=== PATIENT | female | born 1955 | race American Indian/Alaskan Native ===

== ENCOUNTER 2021-08-27 19:26 | Inpatient (IN) | payer OTHER, MEDICARE ==
--- NOTE | 2021-08-27 19:53 | Consultation ---
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 Prior stroke 2.5 weeks ago, unclear currently if she received thrombolysis at that time. Last Known Normal: I have collected independent history specific to time last normal or last known well. We have collaborated with the provider and at this time, we have the most current timeline with the information that is available. 6:30pm Duration: constant minutes hours Possible Thrombolytic candidate: not on warfarin or NOACs no intracranial hemorrhage history no recent major surgery Prior stroke 2.5 weeks ago Quality: weakness # Scores Time of exam and NIHSS ( Time): 08/27/2021, 19:36 Level of Consciousness 1a: [0] = Alert; keenly responsive LOC Questions 1b: [0] = Answers both questions correctly LOC Commands 1c: [0] = Performs both tasks correctly Best Gaze 2: [0] = Normal Visual 3: [0] = No visual loss Facial Palsy 4: [1] = Minor paralysis Motor Arm Left 5a: [1] = Drift Motor Arm Right 5b: [0] = No drift Motor Leg Left 6a: [1] = Drift Motor Leg Right 6b: [0] = No drift Limb Ataxia 7: [0] = Absent Sensory 8: [0] = Normal Best Language 9: [0] = No aphasia Dysarthria 10: [0] = Normal Extinction and Inattention 11: [0] = No abnormality NIHSS Total: 3 Modified [place] Scale (mRS) pre-stroke: [0] = No Symptoms Modified [place] Scale total: 0 VAN Screening: Negative # Exam SBP: 176 DBP: 92 Mental Status: awake alert and oriented x 3 follows commands Language: normal speech Cranial Nerves: left facial droop Mild nasolabial fold asymmetry # ROS Pulmonary: no shortness of breath Cardiovascular: no chest pain # PMH-FH-SH Past Medical History: Diabetes hypertension stroke Social History: non-smoker Medications: antihypertensive diabetic medication Allergies: NKDA # Data Glucose: [address] personally read by me (Eastern Time): 08/27/2021, 19:[address]: no bleed preliminarily reviewed by me, please refer to radiology read for official reading subacute ischemic stroke # Assessment Impression: Ischemic Stroke (Acute) Weakness Acute stroke versus recrudescence # Plan Thrombolytic/Intervention: Possible IA candidate Thrombolytic Exclusion (< 3 hour window): stroke within 3 months Possible IA Candidate: CTA pending Suspect small-vessel disease, though, given current clinical symptoms, as well as CT head Target Blood Pressure: SBP < 220 Labs: B12 CBC comprehensive metabolic panel ESR hemoglobin A1c lipid panel thiamine troponin TSH urine drug screen ua Imaging: (urgency: STAT): CT Angiogram Head and CT Angiogram Neck AND call back with results if abnormal Imaging: (urgency: routine): MRI Brain without contrast Diagnostic Test: echo without bubble study Therapy/Evaluation: NPO until swallow evaluation PT/OT evaluation Medication: aspirin 81 mg PLUS clopidogrel (Plavix) 75 mg for 21 days, then monotherapy therafter start statin with goal of LDL < 70 DVT Prophylaxis: SCD chemical DVT prophylaxis Other: LDL < 70 permissive hypertension telemetry monitoring I have discussed my recommendations with the referring provider Disposition: admit Medications and Allergies Allergies Allergy/AdvReac Type Severity Reaction Status Date / Time No Known Allergies Allergy Verified 08/02/21 21:46 Home Medications Medication Instructions Recorded Confirmed Last Taken Type Aspirin 325 mg PO ONCE 08/07/21 08/07/21 07/31/21 History Loperamide [Imodium] 2 mg PO BID 08/07/21 08/07/21 08/01/21 History Acetaminophen [Acetaminophen TAB] 650 mg PO Q4H PRN tablet 08/08/21 Unknown Rx AtorvaSTATin [Lipitor] 40 mg PO QHS tablet 08/08/21 Unknown Rx Famotidine [Pepcid] 20 mg PO BID tablet 08/08/21 Unknown Rx Losartan [Cozaar] 50 mg PO QDAY tablet 08/08/21 Unknown Rx NIFEdipine XL [Procardia Xl] 60 mg PO QDAY tablet 08/08/21 Unknown Rx metFORMIN [Glucophage] 500 mg PO BIDDIAB tablet 08/08/21 Unknown Rx Results - Laboratory Findings Abnormal Lab Findings: Abnormal Labs 08/27/21 19:29 POC Glucose 107 H
--- NOTE | 2021-08-27 20:12 | Emergency Department Report ---
ED Neuro Deficit HPI - General Stated Complaint: POSSIBLE STROKE Time Seen by Provider: 08/27/21 19:36 - History of Present Illness Initial Comments: 66-year-old female with a history of recent stroke brought in by EMS with left- sided weakness that started about an hour before presentation. No speech or visual disturbance reported. All was well before the symptoms started an hour ago. No fever or chills reported. Patient denies any headache or recent trauma. No other modifying or associated factors reported. - Related Data Home Medications: Home Medications Medication Instructions Recorded Confirmed Last Taken Aspirin 325 mg PO ONCE 08/07/21 08/07/21 07/31/21 Loperamide [Imodium] 2 mg PO BID 08/07/21 08/07/21 08/01/21 Previous Rx's Medication Instructions Recorded Last Taken Type Acetaminophen [Acetaminophen TAB] 650 mg PO Q4H PRN tablet 08/08/21 Unknown Rx AtorvaSTATin [Lipitor] 40 mg PO QHS tablet 08/08/21 Unknown Rx Famotidine [Pepcid] 20 mg PO BID tablet 08/08/21 Unknown Rx Losartan [Cozaar] 50 mg PO QDAY tablet 08/08/21 Unknown Rx NIFEdipine XL [Procardia Xl] 60 mg PO QDAY tablet 08/08/21 Unknown Rx metFORMIN [Glucophage] 500 mg PO BIDDIAB tablet 08/08/21 Unknown Rx Allergies/Adverse Reactions: Allergies Allergy/AdvReac Type Severity Reaction Status Date / Time No Known Allergies Allergy Verified 08/02/21 21:46 ED Review of Systems ROS: Stated complaint: POSSIBLE STROKE Other details as noted in HPI Comment: All other systems reviewed and negative Neurological: weakness ED Past Medical Hx - Past Medical History Hx Hypertension: Yes - Social History Smoking Status: Current Every Day Smoker - Medications Home Medications: Home Medications Medication Instructions Recorded Confirmed Last Taken Type Aspirin 325 mg PO ONCE 08/07/21 08/07/21 07/31/21 History Loperamide [Imodium] 2 mg PO BID 08/07/21 08/07/21 08/01/21 History Acetaminophen [Acetaminophen TAB] 650 mg PO Q4H PRN tablet 08/08/21 Unknown Rx AtorvaSTATin [Lipitor] 40 mg PO QHS tablet 08/08/21 Unknown Rx Famotidine [Pepcid] 20 mg PO BID tablet 08/08/21 Unknown Rx Losartan [Cozaar] 50 mg PO QDAY tablet 08/08/21 Unknown Rx NIFEdipine XL [Procardia Xl] 60 mg PO QDAY tablet 08/08/21 Unknown Rx metFORMIN [Glucophage] 500 mg PO BIDDIAB tablet 08/08/21 Unknown Rx ED Neuro Physical Exam - General Limitations: No Limitations General appearance: alert, in no apparent distress Suspected Stroke: Yes - Head Head exam: Present: atraumatic, normal inspection - Eye Eye exam: Present: normal appearance, PERRL, EOMI Pupils: Present: normal accommodation - ENT ENT exam: Present: normal exam, normal orophraynx, mucous membranes moist - Neck Neck exam: Present: normal inspection, full ROM. Absent: tenderness, meningismus - Respiratory Respiratory exam: Present: normal lung sounds bilaterally. Absent: respiratory distress, accessory muscle use - Cardiovascular Cardiovascular Exam: Present: regular rate, normal rhythm, normal heart sounds - GI/Abdominal GI/Abdominal exam: Present: soft, normal bowel sounds. Absent: distended, tenderness - Extremities Exam Extremities exam: Present: normal inspection, normal capillary refill. Absent: full ROM, tenderness, pedal edema, joint swelling - Neurological Exam Neurological exam: Present: alert - NIHSS Assessment Interval: Baseline 1a. Level of Consciousness: alert/keenly responsive 1b. LOC Questions: answers both correctly 1c. LOC Commands: performs tasks correctly 2. Best Gaze: normal 3. Visual: no visual loss 4. Facial Palsy: normal symmetrical movement 5b. Motor Arm Right: no drift 5a. Motor Arm Left: drift 6a. Motor Leg Left: drift 6b. Motor Leg Right: no drift 7. Limb Ataxia: absent 8. Sensory: normal 9. Best Language: no aphasia 10. Dysarthria: normal 11. Extinction/Inattention: no abnormality Total Score: 2 Stroke Severity: Minor Stroke - Psychiatric Psychiatric exam: Present: normal affect, normal mood - Skin Skin exam: Present: warm, normal color ED Course Vital Signs 08/27/21 08/27/21 20:38 20:55 Temperature 97.8 F Pulse Rate 98 H 95 H Respiratory 18 Rate Blood Pressure 155/82 [Left] O2 Sat by Pulse 100 Oximetry - Reevaluation(s) Reevaluation #1: 08/27/21 20:14 here with EMS with possible left sided weakness and noted with minor drift on both upper and lower treatment use--NIHScore 2 -- Dr Lombardo consulted the neurologist front desk specialist -- who did not recommend tPA at this time and wanted patient admitted for echocardiogram and MRI of the brain in the morning. He also recommended giving aspirin and Plavix for the next 21 days and switch to monotherapy afterward. 08/27/21 21:51 Dr Ivory consulted who accept pt for further neuro workup - Lab Data Result diagrams: 08/27/21 20:08 08/27/21 20:08 Lab Results 08/27/21 08/27/21 08/27/21 Range/Units 19:29 20:08 20:08 WBC 8.9 (4.5-11.0) K/mm3 RBC 4.52 (3.65-5.03) M/mm3 Hgb 10.9 (10.1-14.3) gm/dl Hct 33.9 (30.3-42.9) % MCV 75 L (79-97) fl MCH 24 L (28-32) pg MCHC 32 (30-34) % RDW 17.8 H (13.2-15.2) % Plt Count 242 (140-440) K/mm3 Lymph % (Auto) 22.6 (13.4-35.0) % [place] % (Auto) 8.4 H (0.0-7.3) % Eos % (Auto) 2.0 (0.0-4.3) % Baso % (Auto) 0.6 (0.0-1.8) % Lymph # (Auto) 2.0 (1.2-5.4) K/mm3 [place] # (Auto) 0.7 (0.0-0.8) K/mm3 Eos # (Auto) 0.2 (0.0-0.4) K/mm3 Baso # (Auto) 0.0 (0.0-0.1) K/mm3 Seg Neutrophils % 66.4 (40.0-70.0) % Seg Neutrophils # 5.9 (1.8-7.7) K/mm3 PT 12.2 (12.2-14.9) Sec. INR 0.82 L (0.87-1.13) APTT 27.7 (24.2-36.6) Sec. Sodium (137-145) mmol/L Potassium (3.6-5.0) mmol/L Chloride (98-107) mmol/L Carbon Dioxide (22-30) mmol/L Anion Gap mmol/L BUN (7-17) mg/dL Creatinine (0.6-1.2) mg/dL Estimated GFR ml/min BUN/Creatinine Ratio % Glucose (65-100) mg/dL POC Glucose 107 H (70-105) mg/dL Calcium (8.4-10.2) mg/dL Total Bilirubin (0.1-1.2) mg/dL AST (5-40) units/L ALT (7-56) units/L Alkaline Phosphatase (35-129) units/L Troponin T (0.00-0.029) ng/mL NT-Pro-B Natriuret Pep (0-900) pg/mL Total Protein (6.3-8.2) g/dL Albumin (3.9-5) g/dL Albumin/Globulin Ratio % TSH (0.270-4.200) mlU/mL 08/27/21 08/27/21 Range/Units 20:08 20:08 WBC (4.5-11.0) K/mm3 RBC (3.65-5.03) M/mm3 Hgb (10.1-14.3) gm/dl Hct (30.3-42.9) % MCV (79-97) fl MCH (28-32) pg MCHC (30-34) % RDW (13.2-15.2) % Plt Count (140-440) K/mm3 Lymph % (Auto) (13.4-35.0) % [place] % (Auto) (0.0-7.3) % Eos % (Auto) (0.0-4.3) % Baso % (Auto) (0.0-1.8) % Lymph # (Auto) (1.2-5.4) K/mm3 [place] # (Auto) (0.0-0.8) K/mm3 Eos # (Auto) (0.0-0.4) K/mm3 Baso # (Auto) (0.0-0.1) K/mm3 Seg Neutrophils % (40.0-70.0) % Seg Neutrophils # (1.8-7.7) K/mm3 PT (12.2-14.9) Sec. INR (0.87-1.13) APTT (24.2-36.6) Sec. Sodium 136 L (137-145) mmol/L Potassium 4.7 (3.6-5.0) mmol/L Chloride 102.6 (98-107) mmol/L Carbon Dioxide 21 L (22-30) mmol/L Anion Gap 17 mmol/L BUN 18 H (7-17) mg/dL Creatinine 1.0 (0.6-1.2) mg/dL Estimated GFR > 60 ml/min BUN/Creatinine Ratio 18 % Glucose 100 (65-100) mg/dL POC Glucose (70-105) mg/dL Calcium 9.0 (8.4-10.2) mg/dL Total Bilirubin 0.30 (0.1-1.2) mg/dL AST 15 (5-40) units/L ALT 11 (7-56) units/L Alkaline Phosphatase 85 (35-129) units/L Troponin T < 0.010 (0.00-0.029) ng/mL NT-Pro-B Natriuret Pep 179.9 (0-900) pg/mL Total Protein 6.7 (6.3-8.2) g/dL Albumin 3.8 L (3.9-5) g/dL Albumin/Globulin Ratio 1.3 % TSH 2.160 (0.270-4.200) mlU/mL Critical Care Time: Yes (60) Critical care time in (mins) excluding proc time.: 60 Critical care attestation.: If time is entered above; I have spent that time in minutes in the direct care of this critically ill patient, excluding procedure time. Pt represent with possible stroke and due to high probability of clinically significant, life threatening deterioration, this patient required my highest level of preparedness to intervene emergently and I personally spent this critical care time directly and personally managing this patient. This critical care time included obtaining a history; examining this patient; pulse oximetry ; ordering and review of studies ; arranging urgent treatment with development of a management plan ; evaluation of patient's response to treatment ; frequent reassessment ; and, discussion with other providers. This critical care time was performed to assess and manage the high probability of imminent, life- threatening deterioration that could result in multiple organ damage if not done in a timely fashion. ED Disposition Clinical Impression: Stroke-like symptoms CVA (cerebral vascular accident) Qualifiers: CVA mechanism: unspecified Qualified Code(s): I63.9 - Cerebral infarction, unspecified Disposition: 09 ADMITTED INPATIENT Is pt being admited?: Yes Does the pt Need Aspirin: No Condition: Stable
--- NOTE | 2021-08-27 20:14 | Cat Scan Report ---
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 TECHNIQUE: Routine CT head. All CT scans at this location are performed using CT dose reduction for A BLANCA by means of automated exposure control. COMPARISON: 08/06/2021 MRI brain. FINDINGS: Intracranial: Yang-white matter differentiation is maintained. No intracranial hemorrhage. No extra a xial collection. No hydrocephalus. No herniation. Periventricular and centrum semiovale white matter hypoattenuation most consistent with sequela of chronic microvascular disease, similar prior MRI. Rem ote lacunar infarctions the right posterior limb of internal capsule in the right centrum semiovale. Sinuses: Paranasal sinuses and mastoid air cells are essentially clear. Orbits: Globes are intact. Calvarium: No acute fracture. IMPRESSION: 1. No acute intracranial abnormality. Signer Name: Jer De La Rosa MD Signed: 08/27/2021 8:10 PM Workstation Name: [id number]
--- NOTE | 2021-08-27 20:23 | Cat Scan Report ---
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 TECHNIQUE: CT of the head. CTA of the neck and head is performed after IV contrast. 3-D/MIP reformats were postprocessed. Percentage stenosis is determined by direct quantitative measurements of diseas ed internal carotid artery diameter compared with normal distal internal carotid artery reference seg ments or by criteria similar to NASCET where applicable. All CT scans at this location are performed using CT dose reduction for ALARA by means of automated exposure control. FINDINGS: CT HEAD: Please see CT head from earlier same day CTA NECK: Aortic arch: No significant abnormality. Cervical vertebral arteries: No occlusion or hemodynamically significant stenosis. Common Carotid arteries: No occlusion or hemodynamically significant stenosis. Internal carotid arteries: No occlusion or hemodynamically significant stenosis. CTA HEAD: Intracranial vertebral arteries: No occlusion or significant stenosis. Basilar artery: No occlusion or significant stenosis. Posterior cerebral arteries: No occlusion or significant stenosis. Intracranial internal carotid arteries: No occlusion or significant stenosis. Anterior cerebral arteries: Hypoplastic right A1 segment, common anatomic variant. No occlusion or si gnificant stenosis. Middle cerebral arteries: No occlusion or significant stenosis. No aneurysm. Additional findings: None. IMPRESSION: 1. CTA NECK: No occlusion or significant stenosis of the carotid or vertebral arteries. 2. CTA HEAD: No occlusion or significant stenosis of the major intracranial vasculature. Signer Name: Jer De La Rosa MD Signed: 08/27/2021 8:19 PM Workstation Name: [id number]
[2021-08-27 20:25] LABS: Basophils % (Auto) 0.6 % (0.0-1.8); Eosinophils # (Auto) 0.2 K/mm3 (0.0-0.4); Hematocrit 33.9 % (30.3-42.9); Hemoglobin 10.9 gm/dl (10.1-14.3); Lymphocytes % (Auto) 22.6 % (13.4-35.0); Mean Corpuscular HGB Conc 32 % (30-34); Mean Corpuscular Volume 75 fl (79-97); Monocytes # (Auto) 0.7 K/mm3 (0.0-0.8); Monocytes % (Auto) 8.4 % (0.0-7.3); Platelet Count 242 K/mm3 (140-440); Red Blood Count 4.52 M/mm3 (3.65-5.03); Red Cell Distribution Width 17.8 % (13.2-15.2)
[2021-08-27 20:38] LABS: INR 0.82 (0.87-1.13)
[2021-08-27 20:39] LABS: Partial Thromboplastin Time 27.7 Sec. (24.2-36.6)
[2021-08-27 20:44] LABS: Alanine Aminotransferase 11 units/L (7-56); Albumin 3.8 g/dL (3.9-5); BUN/Creatinine Ratio 18; Blood Urea Nitrogen 18 mg/dL (7-17); Hemolysis Index 35
[2021-08-27] MEDS ORDERED: MORPHINE 4 MG/1 ML INJ IV PRN (22:29)
[2021-08-27] MEDS ORDERED: ONDANSETRON 4 MG/2 ML INJ IV PRN (22:29)
[2021-08-27] MEDS ORDERED: ALBUTEROL 2.5 MG/3 ML NEBU IH PRN (22:29)
--- NOTE | 2021-08-27 22:38 | History and Physical Report ---
History of Present Illness Date of examination: 08/27/21 Date of admission: 08/27/21 Chief complaint: Left left-sided weakness History of present illness: 66-year-old female with past medical history of hypertension, obesity and recently stroke was brought to the emergency room because of left-sided weakness that started about an hour before presentation. No speech or visual disturbance reported. All was well before the symptoms started an hour ago. No fever or chills reported. Patient denies any headache or recent trauma. No other modifying or associated factors reported. Initial CT scan shows no acute intracranial abnormality. Subsequently patient was seen and evaluated by telemetry neurology.'s were going to admit the patient we will put the patient on CVA pathway as per telemetry neuro recommendation Past History Past Medical History: hypertension, stroke (Obesity), other Past Surgical History: No surgical history Social history: smoking Family history: hypertension Medications and Allergies Allergies Allergy/AdvReac Type Severity Reaction Status Date / Time No Known Allergies Allergy Verified 08/02/21 21:46 Home Medications Medication Instructions Recorded Confirmed Last Taken Type Aspirin 325 mg PO ONCE 08/07/21 08/07/21 07/31/21 History Loperamide [Imodium] 2 mg PO BID 08/07/21 08/07/21 08/01/21 History Acetaminophen [Acetaminophen TAB] 650 mg PO Q4H PRN tablet 08/08/21 Unknown Rx AtorvaSTATin [Lipitor] 40 mg PO QHS tablet 08/08/21 Unknown Rx Famotidine [Pepcid] 20 mg PO BID tablet 08/08/21 Unknown Rx Losartan [Cozaar] 50 mg PO QDAY tablet 08/08/21 Unknown Rx NIFEdipine XL [Procardia Xl] 60 mg PO QDAY tablet 08/08/21 Unknown Rx metFORMIN [Glucophage] 500 mg PO BIDDIAB tablet 08/08/21 Unknown Rx Review of Systems All systems: negative Constitutional: weakness, 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) HEART Score - HEART Score Troponin: Troponin T < 0.010 ng/mL (0.00-0.029) 08/27/21 20:08 Results - Labs CBC & Chem 7: 08/27/21 20:08 08/27/21 20:08 Labs: Laboratory Last Values WBC 8.9 K/mm3 (4.5-11.0) 08/27/21 20:08 RBC 4.52 M/mm3 (3.65-5.03) 08/27/21 20:08 Hgb 10.9 gm/dl (10.1-14.3) 08/27/21 20:08 Hct 33.9 % (30.3-42.9) 08/27/21 20:08 MCV 75 fl (79-97) L 08/27/21 20:08 MCH 24 pg (28-32) L 08/27/21 20:08 MCHC 32 % (30-34) 08/27/21 20:08 RDW 17.8 % (13.2-15.2) H 08/27/21 20:08 Plt Count 242 K/mm3 (140-440) 08/27/21 20:08 Lymph % (Auto) 22.6 % (13.4-35.0) 08/27/21 20:08 [place] % (Auto) 8.4 % (0.0-7.3) H 08/27/21 20:08 Eos % (Auto) 2.0 % (0.0-4.3) 08/27/21 20:08 Baso % (Auto) 0.6 % (0.0-1.8) 08/27/21 20:08 Lymph # (Auto) 2.0 K/mm3 (1.2-5.4) 08/27/21 20:08 [place] # (Auto) 0.7 K/mm3 (0.0-0.8) 08/27/21 20:08 Eos # (Auto) 0.2 K/mm3 (0.0-0.4) 08/27/21 20:08 Baso # (Auto) 0.0 K/mm3 (0.0-0.1) 08/27/21 20:08 Seg Neutrophils % 66.4 % (40.0-70.0) 08/27/21 20:08 Seg Neutrophils # 5.9 K/mm3 (1.8-7.7) 08/27/21 20:08 PT 12.2 Sec. (12.2-14.9) 08/27/21 20:08 INR 0.82 (0.87-1.13) L 08/27/21 20:08 APTT 27.7 Sec. (24.2-36.6) 08/27/21 20:08 Sodium 136 mmol/L (137-145) L 08/27/21 20:08 Potassium 4.7 mmol/L (3.6-5.0) 08/27/21 20:08 Chloride 102.6 mmol/L (98-107) 08/27/21 20:08 Carbon Dioxide 21 mmol/L (22-30) L 08/27/21 20:08 Anion Gap 17 mmol/L 08/27/21 20:08 BUN 18 mg/dL (7-17) H 08/27/21 20:08 Creatinine 1.0 mg/dL (0.6-1.2) 08/27/21 20:08 Estimated GFR > 60 ml/min 08/27/21 20:08 BUN/Creatinine Ratio 18 % 08/27/21 20:08 Glucose 100 mg/dL (65-100) 08/27/21 20:08 POC Glucose 107 mg/dL (70-105) H 08/27/21 19:29 Calcium 9.0 mg/dL (8.4-10.2) 08/27/21 20:08 Total Bilirubin 0.30 mg/dL (0.1-1.2) 08/27/21 20:08 AST 15 units/L (5-40) 08/27/21 20:08 ALT 11 units/L (7-56) 08/27/21 20:08 Alkaline Phosphatase 85 units/L (35-129) 08/27/21 20:08 Troponin T < 0.010 ng/mL (0.00-0.029) 08/27/21 20:08 NT-Pro-B Natriuret Pep 179.9 pg/mL (0-900) 08/27/21 20:08 Total Protein 6.7 g/dL (6.3-8.2) 08/27/21 20:08 Albumin 3.8 g/dL (3.9-5) L 08/27/21 20:08 Albumin/Globulin Ratio 1.3 % 08/27/21 20:08 TSH 2.160 mlU/mL (0.270-4.200) 08/27/21 20:08 - Imaging and Cardiology CT Scan - head: report reviewed Assessment and Plan VTE prophylaxis?: Chemical Plan of care discussed with patient/family: Yes - Patient Problems (1) CVA (cerebral vascular accident) Current Visit: Yes Status: Acute Qualifiers: CVA mechanism: unspecified Qualified Code(s): I63.9 - Cerebral infarction, unspecified Plan to address problem: Admit the patient to the medical telemetry. Aspirin 325 mg p.o. daily. Lipitor 40 mg p.o. daily. PT OT speech evaluation. MRI of the brain and MRA of the brain and neck with and without contrast. Neurology evaluation (2) HTN (hypertension) Current Visit: No Status: Acute Plan to address problem: Labetalol 10 mg IV every 6 hours as needed. We continue the home medication. (3) Obesity Current Visit: No Status: Acute Plan to address problem: Counseled the patient regarding weight reduction. We will call outpatient fo llow-up with bariatric surgery (4) DVT prophylaxis Current Visit: No Status: Acute Plan to address problem: Heparin 5000 units subcu every 12 hours for DVT prophylaxis. Pepcid 20 mg IV every 12 hours for GI prophylaxis. Patient is a full code
[2021-08-27] MEDS ORDERED: ASPIRIN 325 MG TAB PO ONE (23:30)
[2021-08-28] MEDS: SODIUM CHLORIDE 0.9% 1000 ML 1,000 ML IV SCH ×2 (01:47→14:27)
[2021-08-28] MEDS: IPRATROPIUM/ALBUTEROL SULFATE 3 ML AMPUL.NEB IH SCH ×3 (02:32→14:05)
[2021-08-28 05:10] LABS: Basophils # (Auto) 0.1 K/mm3 (0.0-0.1); Basophils % (Auto) 0.9 % (0.0-1.8); Eosinophils # (Auto) 0.2 K/mm3 (0.0-0.4); Eosinophils % (Auto) 2.3 % (0.0-4.3); Hematocrit 34.2 % (30.3-42.9); Hemoglobin 10.7 gm/dl (10.1-14.3); Lymphocytes # (Auto) 2.3 K/mm3 (1.2-5.4); Lymphocytes % (Auto) 28.4 % (13.4-35.0); Mean Corpuscular HGB Conc 31 % (30-34); Mean Corpuscular Volume 75 fl (79-97); Monocytes # (Auto) 0.6 K/mm3 (0.0-0.8); Platelet Count 230 K/mm3 (140-440); Red Blood Count 4.54 M/mm3 (3.65-5.03); Red Cell Distribution Width 17.8 % (13.2-15.2)
[2021-08-28 05:33] LABS: BUN/Creatinine Ratio 20; Blood Urea Nitrogen 16 mg/dL (7-17); Chol/HDL Ratio 2.47 %; HDL Cholesterol 46 mg/dL (40-59); Hemolysis Index 5; LDL Cholesterol,Direct 48 mg/dL (50-130)
[2021-08-28] MEDS ORDERED: NIFEdipine XL 60 MG TAB PO SCH (08:00)
--- NOTE | 2021-08-28 08:32 | Consultation ---
History of Present Illness Consult date: 08/28/21 Reason for Consult: CVA Chief complaint: Left arm weakness History of present illness: 66 yo female with htn, ischemic stroke 2 weeks ago w/ left-sided deficits who presents with worsening left arm weakness. Notes continued left arm weaknes this morning. Notes compliance with her medications. Noted with elevated bp in the ED. Telestroke team evaluated the patient in the ED. Past History Past Medical History: hypertension, stroke (Obesity), other Past Surgical History: No surgical history Social history: smoking Family history: hypertension Medications and Allergies Allergies Allergy/AdvReac Type Severity Reaction Status Date / Time No Known Allergies Allergy Verified 08/02/21 21:46 Home Medications Medication Instructions Recorded Confirmed Last Taken Type Aspirin 325 mg PO ONCE 08/07/21 08/07/21 07/31/21 History Loperamide [Imodium] 2 mg PO BID 08/07/21 08/07/21 08/01/21 History Acetaminophen [Acetaminophen TAB] 650 mg PO Q4H PRN tablet 08/08/21 Unknown Rx AtorvaSTATin [Lipitor] 40 mg PO QHS tablet 08/08/21 Unknown Rx Famotidine [Pepcid] 20 mg PO BID tablet 08/08/21 Unknown Rx Losartan [Cozaar] 50 mg PO QDAY tablet 08/08/21 Unknown Rx NIFEdipine XL [Procardia Xl] 60 mg PO QDAY tablet 08/08/21 Unknown Rx metFORMIN [Glucophage] 500 mg PO BIDDIAB tablet 08/08/21 Unknown Rx Active Meds: Active Medications Acetaminophen (Acetaminophen 325 Mg Tab) 650 mg PO Q4H PRN PRN Reason: Pain MILD(1-3)/Fever >100.5/WARNER Albuterol (Albuterol 2.5 Mg/3 Ml Nebu) 2.5 mg IH Q3HRT PRN PRN Reason: Shortness Of Breath Albuterol/Ipratropium (Ipratropium/Albuterol Sulfate 3 Ml Ampul.Neb) 1 ampul IH Q6HRT [facility] Last Admin: 08/28/21 02:32 Dose: Not Given Aspirin (Aspirin 81 Mg Tab Chew) 81 mg PO QDAY [facility] Atorvastatin Calcium (Atorvastatin 40 Mg Tab) 40 mg PO QHS [facility] Clopidogrel Bisulfate (Clopidogrel 75 Mg Tab) 75 mg PO QDAY [facility] Famotidine (Famotidine 20 Mg/2 Ml Inj) 20 mg IV BID [facility] Heparin Sodium (Porcine) (Heparin 5,000 Unit/1 Ml Vial) 5,000 unit SUB-Q Q12HR [facility] Sodium Chloride (Nacl 0.9% 1000 Ml) 1,000 mls @ 100 mls/hr IV DIRECT [facility] Last Admin: 08/28/21 01:47 Dose: 100 mls/hr Labetalol HCl (Labetalol 20 Mg/4 Ml Inj) 10 mg IV Q5MIN PRN PRN Reason: to maintain SBP < 180 Morphine Sulfate (Morphine 2 Mg/1 Ml Inj) 2 mg IV Q4H PRN PRN Reason: Pain, Moderate (4-6) Morphine Sulfate (Morphine 4 Mg/1 Ml Inj) 4 mg IV Q4H PRN PRN Reason: Pain , Severe (7-10) Ondansetron HCl (Ondansetron 4 Mg/2 Ml Inj) 4 mg IV Q8H PRN PRN Reason: Nausea And Vomiting Sodium Chloride (Sodium Chloride 0.9% 10 Ml Flush Syringe) 10 ml IV BID [facility] Sodium Chloride (Sodium Chloride 0.9% 10 Ml Flush Syringe) 10 ml IV PRN PRN PRN Reason: LINE FLUSH Review of Systems All systems: negative (as per hpi;) Physical Examination - Vital Signs Vital Signs: Vital Signs Pulse Resp Pulse Ox 100 H 15 96 08/27/21 20:20 08/27/21 20:20 08/27/21 20:20 - Physical Exam Narrative exam: Gen: nad, well-nourished; Head: normocephalic; Eyes: no gaze deviation; no ptosis; ENT: normal vocalization; CVS: warm and well-perfused; Pulm: no respiratory distress; GI: appears non-distended; Ext: no cyanosis appreciated at distal extremities; Skin: no acute rash at distal extremities; Heme: no pathologic ecchymosis appreciated at distal extremities; Neuro: alert, oriented to name, age, month, year, no dysarthria, no aphasia, CN 2 - PERRL, visual cordero grossly intact, CN 3, 4, 6 - EOMI, CN 5 - facial sensation symmetric to light touch, CN 7 - facial movement with slight right orolabial droop, CN 8 - hearing grossly intact, CN 9, 10 - uvula midline, CN 11 symmetric shoulder movement, CN 12 - tongue midline; Motor - at least 4+/5 at all exts except 4/5 at LLE; drift at LUE; Sensory - light touch symmetric, Cerebellar - fnf difficulty due to weakness on left; hts symmetric, Gait - defer red secondary to fall risk; NIHSS (1a.) Level of Consciousness:0 (1b.) LOC Questions:0 (1c.) LOC Commands:0 (2.) Best Gaze:0 (3.) Visual:0 (4.) Facial Palsy:1 (5a.) Motor Arm, Left:1 (5b.) Motor Arm, Right:0 (6a.) Motor Leg, Left:0 (6b.) Motor Leg, Right:0 (7.) Limb Ataxia:0 (8.) Sensory:0 (9.) Best Language:0 (10.) Dysarthria:0 (11.) Extinction and Inattention:0 NIHSS Total Score: 2 Results - Laboratory Findings CBC and BMP: 08/28/21 04:59 08/28/21 04:59 Abnormal Lab Findings: Abnormal Labs 08/27/21 08/27/21 08/27/21 19:29 20:08 20:08 MCV 75 L MCH 24 L RDW 17.8 H [place] % (Auto) 8.4 H INR 0.82 L Sodium Carbon Dioxide BUN POC Glucose 107 H Albumin LDL Cholesterol Direct 08/27/21 08/28/21 08/28/21 20:08 04:59 04:59 MCV 75 L MCH 24 L RDW 17.8 H [place] % (Auto) INR Sodium 136 L Carbon Dioxide 21 L BUN 18 H POC Glucose Albumin 3.8 L LDL Cholesterol Direct 48 L Assessment and Plan 66 yo female with htn, ischemic stroke 2 weeks ago w/ left-sided deficits who presents with worsening left arm weakness. Notes continued left arm weaknes this morning. Notes compliance with her medications. Noted with elevated bp in the ED. Telestroke team evaluated the patient in the ED. 1. 1. Acute Ischemic Stroke (extension vs recrudescence) ASA 325 mg PO qday, Plavix 75 mg po qday x21 days; pending MRI Brain w/o contrast, confirm L DL/TSH/Covid-19/UDS, telemetry, NIHSS q4 hours; SBP goal 160-200 mmHg and DBP 80-100 mmHg for 48 hours. Statin therapy for a goal LDL of 70, when patient passes swallow evaluation. PT/OT/ST/Swallow evaluation. Long-term risk-factor modification, including a strict diet/exercise regimen for secondary stroke prophylaxis. Stroke education prior to discharge. 2. Hypertension - goal SBP 160-200 mmHg and DBP 80-100 mmHg for 48 hours. 3. Facial Droop- st / swallow evaluation/monitoring. 4. X-sided weakness - pt/ot evaluation/monitoring. 5. Unsteady Gait - pt/ot evaluation/monitoring. Joel Brown MD Neurology [id number]
--- NOTE | 2021-08-28 09:07 | Electrocardiograph Report ---
[facility] Test Date: 2021-08-27 Test Time: 20:23:33 Pat Name: YOSEPH MARQUES Department: Room: A457 1 Gender: F [employer]: [birth year] : [id number] Requested By: RONY RYAN Order Number: [id number] Reading MD: Jacob Paul Measurements Intervals [place] Rate: 99 P: 67 AR: 177 QRS: -70 QRSD: 144 T: 98 QT: 377 QTc: 483 Interpretive Statements Sinus rhythm RBBB and LAFB LVH with secondary repolarization abnormality Compared to ECG 08/02/2021 18:08:08 Early repolarization now present Sinus tachycardia no longer present ST (T wave) deviation no longer present Electronically Signed On 08-28-2021 9:07:00 EDT by Jacob Paul
[2021-08-28] MEDS ORDERED: LORazepam 2 MG/ML VIAL IV SCH (09:30)
[2021-08-28] MEDS ORDERED: ASPIRIN 325 MG TAB PO SCH (10:00)
[2021-08-28] MEDS ORDERED: ASPIRIN 81 MG TAB CHEW PO SCH ×2 (10:00→10:44)
[2021-08-28] MEDS ORDERED: LOSARTAN 50 MG TAB PO SCH (10:00)
--- NOTE | 2021-08-28 10:30 | Magnetic Resonance Report ---
. MR MRA/MRV head wo con INDICATION / CLINICAL INFORMATION: 66 years Female; stroke, BILAT. LEG WEAKNESS. TECHNIQUE: 3-D time of flight. NASCET type criteria used to evaluate stenoses. COMPARISON: The study is compared to the earlier CTA head of 06/27/2021. FINDINGS: INTERNAL CAROTID ARTERIES: The motion degrades image quality. However, there is no clear evidence of significant stenosis involving intracranial ICAs by NASCET criteria. VERTEBROBASILAR SYSTEM: The vertebrobasilar system also demonstrate appropriate caliber without signi ficant focal narrowing. 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 Otherwise, t he visualized cerebral arteries demonstrate appropriate caliber without significant focal stenosis. ANEURYSM: None identified. IMPRESSION: The motion degrades image quality. However, there is developmental hypoplasia the A1 segment of the r ight [place]. The MRA of the brain otherwise appears unremarkable. Signer Name: Lenny James MD Signed: 08/28/2021 10:26 AM Workstation Name: [id number]
[2021-08-28] MEDS: CLOPIDOGREL 75 MG TAB PO SCH (10:40)
[2021-08-28] MEDS: HEPARIN 5,000 UNIT/1 ML VIAL SUB-Q SCH ×3 (10:41→21:01)
[2021-08-28] MEDS: FAMOTIDINE 20 MG/2 ML INJ IV SCH ×3 (10:41→21:01)
--- NOTE | 2021-08-28 10:44 | Progress Note ---
Assessment and Plan Assessment and plan: #Presumed acute ischemic CVA versus recrudescence Unremarkable CT head noncontrast, CTA head and neck. 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 Unremarkable MRA brain." Pending MRI brain with and without contrast Continue aspirin 325 mg daily, Plavix 75 mg daily x21 days, atorvastatin 40 mg daily. Neurology consulted; appreciate recs Physical therapy, Occupational Therapy, and speech therapy consulted. Pending recommendations. Lipid panel: Triglycerides 115, total cholesterol 114, LDL 48, HDL 46. Hemoglo bin A1c 6.0. #Hypertension - home medications: Nifedipine 60 mg daily, losartan 50 mg daily - current medications: Currently holding antihypertensives to allow permissive hypertension in the setting of presumed acute ischemic CVA - SBP goal <160 and DBP goal <90 while inpatient - continue to monitor #Non-insulin dependent type II diabetes mellitus - hemoglobin A1c: 6.0 - home regimen: Metformin 500 mg twice daily - current regimen: Metformin 500 mg twice daily - blood glucose goal 140-180 while inpatient - continue to monitor #Morbid obesity #Weight loss counseling #Exercise counseling - BMI 50.2 - Counseled patient on the importance of weight loss, incorporating exercise, and dietary changes (lean meats, fresh fruits and vegetables, and water intake). Patient expresses understanding. - Time: +15 min #Advanced care planning -Disease education conducted, care plan discussed, diagnoses discussed, prognosis discussed, and patient acknowledges understanding with care plan -Time: +30 min Disposition Plan: Continue medical management Total Time Spent with Patient (Minutes): 45 minutes History Interval history: No acute events overnight. Hospitalist Physical - Constitutional Vitals: Temp Pulse Resp BP Pulse Ox 98.6 F 87 16 167/76 97 08/28/21 07:37 08/28/21 08:34 08/28/21 08:34 08/28/21 07:37 08/28/21 08:36 General appearance: Present: no acute distress, well-nourished, obese - EENT Eyes: Present: PERRL, EOM intact ENT: hearing intact, clear oral mucosa, dentition normal - Neck Neck: Present: supple, normal ROM - Respiratory Respiratory effort: normal Respiratory: bilateral: CTA - Cardiovascular Rhythm: regular Heart Sounds: Present: S1 & S2 - Extremities Extremities: no ischemia, pulses intact, pulses symmetrical, No edema, normal temperature, normal color Peripheral Pulses: within normal limits - Abdominal General gastrointestinal: soft, non-tender, non-distended, normal bowel sounds - Integumentary Integumentary: Present: clear, warm, dry - Psychiatric Psychiatric: appropriate mood/affect, cooperative - Neurologic Neurologic: CNII-XII intact - Allied Health Allied health notes reviewed: nursing HEART Score - HEART Score Troponin: Troponin T < 0.010 ng/mL (0.00-0.029) 08/27/21 20:08 Results - Labs CBC & Chem 7: 08/28/21 04:59 08/28/21 04:59 Labs: Laboratory Last Values WBC 8.2 K/mm3 (4.5-11.0) 08/28/21 04:59 RBC 4.54 M/mm3 (3.65-5.03) 08/28/21 04:59 Hgb 10.7 gm/dl (10.1-14.3) 08/28/21 04:59 Hct 34.2 % (30.3-42.9) 08/28/21 04:59 MCV 75 fl (79-97) L 08/28/21 04:59 MCH 24 pg (28-32) L 08/28/21 04:59 MCHC 31 % (30-34) 08/28/21 04:59 RDW 17.8 % (13.2-15.2) H 08/28/21 04:59 Plt Count 230 K/mm3 (140-440) 08/28/21 04:59 Lymph % (Auto) 28.4 % (13.4-35.0) 08/28/21 04:59 [place] % (Auto) 7.0 % (0.0-7.3) 08/28/21 04:59 Eos % (Auto) 2.3 % (0.0-4.3) 08/28/21 04:59 Baso % (Auto) 0.9 % (0.0-1.8) 08/28/21 04:59 Lymph # (Auto) 2.3 K/mm3 (1.2-5.4) 08/28/21 04:59 [place] # (Auto) 0.6 K/mm3 (0.0-0.8) 08/28/21 04:59 Eos # (Auto) 0.2 K/mm3 (0.0-0.4) 08/28/21 04:59 Baso # (Auto) 0.1 K/mm3 (0.0-0.1) 08/28/21 04:59 Seg Neutrophils % 61.4 % (40.0-70.0) 08/28/21 04:59 Seg Neutrophils # 5.1 K/mm3 (1.8-7.7) 08/28/21 04:59 PT 12.2 Sec. (12.2-14.9) 08/27/21 20:08 INR 0.82 (0.87-1.13) L 08/27/21 20:08 APTT 27.7 Sec. (24.2-36.6) 08/27/21 20:08 Sodium 137 mmol/L (137-145) 08/28/21 04:59 Potassium 4.0 mmol/L (3.6-5.0) 08/28/21 04:59 Chloride 104.1 mmol/L (98-107) 08/28/21 04:59 Carbon Dioxide 22 mmol/L (22-30) 08/28/21 04:59 Anion Gap 15 mmol/L 08/28/21 04:59 BUN 16 mg/dL (7-17) 08/28/21 04:59 Creatinine 0.8 mg/dL (0.6-1.2) 08/28/21 04:59 Estimated GFR > 60 ml/min 08/28/21 04:59 BUN/Creatinine Ratio 20 % 08/28/21 04:59 Glucose 93 mg/dL (65-100) 08/28/21 04:59 POC Glucose 107 mg/dL (70-105) H 08/27/21 19:29 Hemoglobin A1c 6.0 % (4-6) 08/28/21 04:59 Calcium 9.0 mg/dL (8.4-10.2) 08/28/21 04:59 Total Bilirubin 0.30 mg/dL (0.1-1.2) 08/27/21 20:08 AST 15 units/L (5-40) 08/27/21 20:08 ALT 11 units/L (7-56) 08/27/21 20:08 Alkaline Phosphatase 85 units/L (35-129) 08/27/21 20:08 Troponin T < 0.010 ng/mL (0.00-0.029) 08/27/21 20:08 NT-Pro-B Natriuret Pep 179.9 pg/mL (0-900) 08/27/21 20:08 Total Protein 6.7 g/dL (6.3-8.2) 08/27/21 20:08 Albumin 3.8 g/dL (3.9-5) L 08/27/21 20:08 Albumin/Globulin Ratio 1.3 % 08/27/21 20:08 Triglycerides 115 mg/dL (2-149) 08/28/21 04:59 Cholesterol 114 mg/dL (50-199) 08/28/21 04:59 LDL Cholesterol Direct 48 mg/dL (50-130) L 08/28/21 04:59 HDL Cholesterol 46 mg/dL (40-59) 08/28/21 04:59 Cholesterol/HDL Ratio 2.47 % 08/28/21 04:59 TSH 2.160 mlU/mL (0.270-4.200) 08/27/21 20:08 Moya/IV: Voiding Method External Female Catheter Active Medications - Current Medications Current Medications: Generic Name Dose Route Start Last Admin Trade Name Freq PRN Reason Stop Dose Admin Acetaminophen 650 mg 08/27/21 22:29 Acetaminophen 325 Mg Tab PO Q4H PRN Pain MILD(1-3)/Fever >100.5/WARNER Albuterol 2.5 mg 08/27/21 22:29 Albuterol 2.5 Mg/3 Ml Nebu IH Q3HRT PRN Shortness Of Breath Albuterol/Ipratropium 1 ampul 08/28/21 02:00 08/28/21 08:33 Ipratropium/Albuterol Sulfate 3 Ml Ampul.Neb IH Not Given Q6HRT [facility] Aspirin 81 mg 08/28/21 10:00 Aspirin 81 Mg Tab Chew PO QDAY [facility] Atorvastatin Calcium 40 mg 08/28/21 22:00 Atorvastatin 40 Mg Tab PO QHS [facility] Clopidogrel Bisulfate 75 mg 08/28/21 10:00 Clopidogrel 75 Mg Tab PO QDAY [facility] Famotidine 20 mg 08/28/21 10:00 Famotidine 20 Mg/2 Ml Inj IV BID [facility] Heparin Sodium (Porcine) 5,000 unit 08/28/21 10:00 Heparin 5,000 Unit/1 Ml Vial SUB-Q Q12HR [facility] Sodium Chloride 1,000 mls @ 100 mls/hr 08/27/21 22:30 08/28/21 01:47 Nacl 0.9% 1000 Ml IV 100 mls/hr DIRECT [facility] Administration Labetalol HCl 10 mg 08/27/21 22:29 Labetalol 20 Mg/4 Ml Inj IV Q5MIN PRN to maintain SBP < 180 Lorazepam 1.5 mg 08/28/21 09:30 08/28/21 09:45 Lorazepam 2 Mg/Ml Vial IV 08/28/21 14:00 1.5 mg ONCE@0930 [facility] Administration Morphine Sulfate 2 mg 08/27/21 22:29 Morphine 2 Mg/1 Ml Inj IV Q4H PRN Pain, Moderate (4-6) Morphine Sulfate 4 mg 08/27/21 22:29 Morphine 4 Mg/1 Ml Inj IV Q4H PRN Pain , Severe (7-10) Ondansetron HCl 4 mg 08/27/21 22:29 Ondansetron 4 Mg/2 Ml Inj IV Q8H PRN Nausea And Vomiting Sodium Chloride 10 ml 08/28/21 10:00 Sodium Chloride 0.9% 10 Ml Flush Syringe IV BID [facility] Sodium Chloride 10 ml 08/27/21 22:29 Sodium Chloride 0.9% 10 Ml Flush Syringe IV PRN PRN LINE FLUSH
--- NOTE | 2021-08-28 11:01 | Magnetic Resonance Report ---
MRI BRAIN 08/28/2021 INDICATION / CLINICAL INFORMATION: stroke, BILAT. LEG WEAKNESS Technologist note: Patient motion, given Ativan prior to MRI, patient continued to move, best possibl e study.. TECHNIQUE: Multiplanar, multisequence MR images of the brain were obtained. COMPARISON: MRI brain 08/06/2021 FINDINGS: BRAIN / INTRACRANIAL CONTENTS: Unenhanced MR images of the brain were obtained and compared to the pr ior exam from 08/06/2021. There is a new 5 mm area of increased diffusion weighted signal present in the left anterior centrum semiovale. There is no definite ADC signal change, and this may be an indication of subacute ischemic injury. The previously seen acute ischemic change in the region of the right thalamus now has a subacute appe arance, with increased diffusion weighted signal, and no evidence of ADC signal change. Some patchy areas of white matter T2 shine through are again noted. There is no evidence of hemorrhage. Extensive diffuse chronic microangiopathic white matter changes a gain noted. There are no abnormal extra-axial fluid collections. EXTRACRANIAL: Unremarkable CRANIOCERVICAL JUNCTION: No significant abnormality. VASCULAR FLOW-VOIDS: No significant abnormality. IMPRESSION: 1. Since the prior exam, there is new area of left frontal cortical signal change, which has a subacu te appearance. Evolving right thalamic infarct. Extensive chronic microangiopathic change. Signer Name: Shlomo You MD Signed: 08/28/2021 10:56 AM Workstation Name: [id number]
[2021-08-28] MEDS: MORPHINE 2 MG/1 ML INJ IV PRN (11:53)
[2021-08-28] MEDS ORDERED: metFORMIN 500 MG TAB PO SCH (17:00)
[2021-08-28 19:55] LABS: Bilirubin,Urine Negative (Negative); Color,Urine Straw (Yellow)
[2021-08-28 19:56] LABS: Blood,Urine Negative (Negative); Urobilinogen,Urine < 0.2 mg/dL (<2.0)
[2021-08-28 19:57] LABS: PH,Urine 6.5 (5.0-7.0)
[2021-08-28 20:09] LABS: RBC,Urine < 1.0 /HPF (0.0-6.0); WBC,Urine < 1.0 /HPF (0.0-6.0)
[2021-08-29] MEDS: HEPARIN 5,000 UNIT/1 ML VIAL SUB-Q SCH ×2 (09:51→21:55)
[2021-08-29] MEDS: FAMOTIDINE 20 MG/2 ML INJ IV SCH ×2 (09:51→21:55)
[2021-08-29] MEDS: CLOPIDOGREL 75 MG TAB PO SCH (09:51)
[2021-08-29] MEDS ORDERED: ASPIRIN 325 MG TAB PO SCH (10:00)
--- NOTE | 2021-08-29 11:22 | Progress Note ---
Assessment and Plan Assessment and plan: #Presumed acute ischemic CVA versus recrudescencestable Unremarkable CT head noncontrast, CTA head and neck. 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 Unremarkable MRA brain." Pending MRI brain with and without contras t Continue aspirin 325 mg daily, Plavix 75 mg daily x21 days, atorvastatin 40 mg daily. Neurology consulted; appreciate recs Physical therapy, Occupational Therapy, and speech therapy consulted. Pending recommendations. Lipid panel: Triglycerides 115, total cholesterol 114, LDL 48, HDL 46. H emoglobin A1c 6.0. #Hypertension - home medications: Nifedipine 60 mg daily, losartan 50 mg daily - current medications: Currently holding antihypertensives to allow permissive hypertension in the setting of presumed acute ischemic CVA - SBP goal <160 and DBP goal <90 while inpatient - continue to monitor #Non-insulin dependent type II diabetes mellitus - hemoglobin A1c: 6.0 - home regimen: Metformin 500 mg twice daily - current regimen: Metformin 500 mg twice daily - blood glucose goal 140-180 while inpatient - continue to monitor #Morbid obesity #Weight loss counseling #Exercise counseling - BMI 50.2 - Counseled patient on the importance of weight loss, incorporating exercise, and dietary changes (lean meats, fresh fruits and vegetables, and water intake). Patient expresses understanding. - Time: +15 min #Advanced care planning -Disease education conducted, care plan discussed, diagnoses discussed, prognosis discussed, and patient acknowledges understanding with care plan -Time: +30 min #Discharge planning - Patient is pending authorization for assisted living facility. Patient no longer desires subacute rehab as recommended by PT/OT. - Case management has been made aware. Disposition Plan: Pending assisted living facility authorization Total Time Spent with Patient (Minutes): 45 minutes History Interval history: No acute events overnight. Hospitalist Physical - Constitutional Vitals: Temp Pulse Resp BP Pulse Ox 98.6 F 76 18 160/86 98 08/29/21 07:23 08/29/21 10:00 08/29/21 07:23 08/29/21 07:23 08/29/21 10:51 General appearance: Present: no acute distress, well-nourished, obese - EENT Eyes: Present: PERRL, EOM intact ENT: hearing intact, clear oral mucosa, dentition normal - Neck Neck: Present: supple, normal ROM - Respiratory Respiratory effort: normal Respiratory: bilateral: CTA - Cardiovascular Rhythm: regular Heart Sounds: Present: S1 & S2 - Extremities Extremities: no ischemia, pulses intact, pulses symmetrical, No edema, normal temperature, normal color, abnormal (Left lower extremity weakness) Peripheral Pulses: within normal limits - Abdominal General gastrointestinal: soft, non-tender, non-distended, normal bowel sounds - Integumentary Integumentary: Present: clear, warm, dry - Psychiatric Psychiatric: appropriate mood/affect, cooperative, other (Limited insight regarding medical condition) - Neurologic Neurologic: CNII-XII intact, moves all extremities - Allied Health Allied health notes reviewed: nursing HEART Score - HEART Score Troponin: Troponin T < 0.010 ng/mL (0.00-0.029) 08/27/21 20:08 Results - Labs CBC & Chem 7: 08/28/21 04:59 08/28/21 04:59 Labs: Laboratory Last Values WBC 8.2 K/mm3 (4.5-11.0) 08/28/21 04:59 RBC 4.54 M/mm3 (3.65-5.03) 08/28/21 04:59 Hgb 10.7 gm/dl (10.1-14.3) 08/28/21 04:59 Hct 34.2 % (30.3-42.9) 08/28/21 04:59 MCV 75 fl (79-97) L 08/28/21 04:59 MCH 24 pg (28-32) L 08/28/21 04:59 MCHC 31 % (30-34) 08/28/21 04:59 RDW 17.8 % (13.2-15.2) H 08/28/21 04:59 Plt Count 230 K/mm3 (140-440) 08/28/21 04:59 Lymph % (Auto) 28.4 % (13.4-35.0) 08/28/21 04:59 [place] % (Auto) 7.0 % (0.0-7.3) 08/28/21 04:59 Eos % (Auto) 2.3 % (0.0-4.3) 08/28/21 04:59 Baso % (Auto) 0.9 % (0.0-1.8) 08/28/21 04:59 Lymph # (Auto) 2.3 K/mm3 (1.2-5.4) 08/28/21 04:59 [place] # (Auto) 0.6 K/mm3 (0.0-0.8) 08/28/21 04:59 Eos # (Auto) 0.2 K/mm3 (0.0-0.4) 08/28/21 04:59 Baso # (Auto) 0.1 K/mm3 (0.0-0.1) 08/28/21 04:59 Seg Neutrophils % 61.4 % (40.0-70.0) 08/28/21 04:59 Seg Neutrophils # 5.1 K/mm3 (1.8-7.7) 08/28/21 04:59 PT 12.2 Sec. (12.2-14.9) 08/27/21 20:08 INR 0.82 (0.87-1.13) L 08/27/21 20:08 APTT 27.7 Sec. (24.2-36.6) 08/27/21 20:08 Sodium 137 mmol/L (137-145) 08/28/21 04:59 Potassium 4.0 mmol/L (3.6-5.0) 08/28/21 04:59 Chloride 104.1 mmol/L (98-107) 08/28/21 04:59 Carbon Dioxide 22 mmol/L (22-30) 08/28/21 04:59 Anion Gap 15 mmol/L 08/28/21 04:59 BUN 16 mg/dL (7-17) 08/28/21 04:59 Creatinine 0.8 mg/dL (0.6-1.2) 08/28/21 04:59 Estimated GFR > 60 ml/min 08/28/21 04:59 BUN/Creatinine Ratio 20 % 08/28/21 04:59 Glucose 93 mg/dL (65-100) 08/28/21 04:59 POC Glucose 107 mg/dL (70-105) H 08/27/21 19:29 Hemoglobin A1c 6.0 % (4-6) 08/28/21 04:59 Calcium 9.0 mg/dL (8.4-10.2) 08/28/21 04:59 Total Bilirubin 0.30 mg/dL (0.1-1.2) 08/27/21 20:08 AST 15 units/L (5-40) 08/27/21 20:08 ALT 11 units/L (7-56) 08/27/21 20:08 Alkaline Phosphatase 85 units/L (35-129) 08/27/21 20:08 Troponin T < 0.010 ng/mL (0.00-0.029) 08/27/21 20:08 NT-Pro-B Natriuret Pep 179.9 pg/mL (0-900) 08/27/21 20:08 Total Protein 6.7 g/dL (6.3-8.2) 08/27/21 20:08 Albumin 3.8 g/dL (3.9-5) L 08/27/21 20:08 Albumin/Globulin Ratio 1.3 % 08/27/21 20:08 Triglycerides 115 mg/dL (2-149) 08/28/21 04:59 Cholesterol 114 mg/dL (50-199) 08/28/21 04:59 LDL Cholesterol Direct 48 mg/dL (50-130) L 08/28/21 04:59 HDL Cholesterol 46 mg/dL (40-59) 08/28/21 04:59 Cholesterol/HDL Ratio 2.47 % 08/28/21 04:59 TSH 2.160 mlU/mL (0.270-4.200) 08/27/21 20:08 Urine Color Straw (Yellow) 08/28/21 Unknown Urine Turbidity Clear (Clear) 08/28/21 Unknown Urine pH 6.5 (5.0-7.0) 08/28/21 Unknown Ur Specific [place] 1.010 (1.003-1.030) 08/28/21 Unknown Urine Protein 30 mg/dl mg/dL (Negative) 08/28/21 Unknown Urine Glucose (UA) Negative mg/dL (Negative) 08/28/21 Unknown Urine Ketones Negative mg/dL (Negative) 08/28/21 Unknown Urine Blood Negative (Negative) 08/28/21 Unknown Urine Nitrite Negative (Negative) 08/28/21 Unknown Urine Bilirubin Negative (Negative) 08/28/21 Unknown Urine Urobilinogen < 0.2 mg/dL (<2.0) 08/28/21 Unknown Ur Leukocyte Esterase Negative (Negative) 08/28/21 Unknown Urine WBC (Auto) < 1.0 /HPF (0.0-6.0) 08/28/21 Unknown Urine RBC (Auto) < 1.0 /HPF (0.0-6.0) 08/28/21 Unknown U Epithel Cells (Auto) 1.0 /HPF (0-13.0) 08/28/21 Unknown Moya/IV: Voiding Method External Female Catheter Active Medications - Current Medications Current Medications: Generic Name Dose Route Start Last Admin Trade Name Freq PRN Reason Stop Dose Admin Acetaminophen 650 mg 08/27/21 22:29 Acetaminophen 325 Mg Tab PO Q4H PRN Pain MILD(1-3)/Fever >100.5/WARNER Albuterol 2.5 mg 08/27/21 22:29 Albuterol 2.5 Mg/3 Ml Nebu IH Q3HRT PRN Shortness Of Breath Aspirin 325 mg 08/29/21 10:00 08/29/21 09:51 Aspirin 325 Mg Tab PO 325 mg QDAY ABRAM Administration Atorvastatin Calcium 40 mg 08/28/21 22:00 08/28/21 21:01 Atorvastatin 40 Mg Tab PO Not Given QHS ABRAM Clopidogrel Bisulfate 75 mg 08/28/21 10:00 08/29/21 09:51 Clopidogrel 75 Mg Tab PO 75 mg QDAY ABRAM Administration Famotidine 20 mg 08/28/21 10:00 08/29/21 09:51 Famotidine 20 Mg/2 Ml Inj IV 20 mg BID ABRAM Administration Heparin Sodium (Porcine) 5,000 unit 08/28/21 10:00 08/29/21 09:51 Heparin 5,000 Unit/1 Ml Vial SUB-Q 5,000 unit Q12HR ABRAM Administration Sodium Chloride 1,000 mls @ 100 mls/hr 08/27/21 22:30 08/28/21 14:27 Nacl 0.9% 1000 Ml IV 100 mls/hr DIRECT ABRAM Administration Labetalol HCl 10 mg 08/27/21 22:29 Labetalol 20 Mg/4 Ml Inj IV Q5MIN PRN to maintain SBP < 180 Metformin HCl 500 mg 08/30/21 08:00 Metformin 500 Mg Tab PO BIDDIAB ABRAM Morphine Sulfate 2 mg 08/27/21 22:29 08/28/21 11:53 Morphine 2 Mg/1 Ml Inj IV 2 mg Q4H PRN Administration Pain, Moderate (4-6) Morphine Sulfate 4 mg 08/27/21 22:29 Morphine 4 Mg/1 Ml Inj IV Q4H PRN Pain , Severe (7-10) Ondansetron HCl 4 mg 08/27/21 22:29 Ondansetron 4 Mg/2 Ml Inj IV Q8H PRN Nausea And Vomiting Sodium Chloride 10 ml 08/28/21 10:00 08/29/21 09:50 Sodium Chloride 0.9% 10 Ml Flush Syringe IV 10 ml BID ABRAM Administration Sodium Chloride 10 ml 08/27/21 22:29 Sodium Chloride 0.9% 10 Ml Flush Syringe IV PRN PRN LINE FLUSH
[2021-08-30] MEDS ORDERED: ASPIRIN 325 MG TAB PO SCH (07:19)
[2021-08-30] MEDS: LOSARTAN 25 MG TAB PO SCH (09:45)
[2021-08-30] MEDS: metFORMIN 500 MG TAB PO SCH ×2 (09:45→18:44)
[2021-08-30] MEDS: CLOPIDOGREL 75 MG TAB PO SCH (09:45)
[2021-08-30] MEDS: ASPIRIN 81 MG TAB CHEW PO SCH (09:45)
[2021-08-30] MEDS: NIFEdipine XL 60 MG TAB PO SCH ×2 (09:45→22:55)
[2021-08-30] MEDS: HEPARIN 5,000 UNIT/1 ML VIAL SUB-Q SCH ×2 (09:46→22:55)
[2021-08-30] MEDS: FAMOTIDINE 20 MG/2 ML INJ IV SCH ×2 (09:46→22:59)
--- NOTE | 2021-08-30 12:16 | Discharge Summary ---
Providers - Providers Date of Admission: 08/28/21 10:37 Date of discharge: 08/30/21 Attending physician: LAURA GONZALEZ MD 08/27/21 22:29 Occupational Therapy Evaluate and Treat [CONS] Routine Comment: Reason For Exam: Neuro deficits Physical Therapy Evaluation and Treat [CONS] Routine Comment: Reason For Exam: Neuro deficits 08/28/21 07:19 Speech Therapy Evaluation and Treat [CONS] Routine Reason For Exam: Stroke evaluation 08/28/21 07:21 Consult to Physician [CONS] Routine Comment: Consulting Provider: CJ VICENTE Physician Instructions: Reason For Exam: Stroke evaluation Primary care physician: DEYANIRA DU Hospitalization Reason for admission: Recrudescence of prior acute ischemic CVA Condition: Stable Pertinent studies: Reviewed. Procedures: None. Hospital course: Patient is a 66-year-old female past medical history of morbid obesity, hypertension, tobacco dependence, [id number] type 2 diabetes mellitus, and recent history of CVA (approximately 2.5 weeks prior that was outside of the tPA window) who presented to the emergency department with acute left-sided weakness started approximately 1 hour prior to presentation without visual or verbal disturbances appreciated. In the ED, the patient was found to be hemodynamically stable. Teleneurology was consulted in the ED for further management. The patient was admitted for further CVA work-up for new acute ischemic stroke versus recrudescence. Patient underwent CT head noncontrast, CTA head and neck, and MRI brain that were found to be unremarkable. The MRI was remarkable for "evolving right thalamic infarct" that is consistent with the patient having recrudescence as opposed to a new acute ischemic CVA. Patient was evaluated by physical therapy, Occupational Therapy, and speech therapy who recommended [facility]. The patient initially declined rehabilitation and was asking for placement at a assisted living facility; however, the patient does not meet the financial requirements. She expressed understanding. The patient then agreed to [facility], and then she requested to be discharged home. Repeated detailed conversations have been had with the patient about coming to a distinct decision about her disposition. The decision has been made to discharge the patient home with her son and [id number]. Patient expressed understanding. Disposition: 30 STILL A PATIENT Final Discharge Diagnosis (Prints w/discharge instructions): Recrudescence of prior acute ischemic CVA, hypertension, [id number] type 2 diabetes mellitus, morbid obesity, tobacco dependence Time spent for discharge: 45 min Core Measure Documentation - Palliative Care Palliative Care/ Comfort Measures: Not Applicable - Core Measures Any of the following diagnoses?: history only Exam - Constitutional Vitals: Temp Pulse Resp BP Pulse Ox 98.0 F 92 H 16 155/98 98 08/30/21 11:53 08/30/21 11:53 08/30/21 11:53 08/30/21 11:53 08/30/21 11:53 General appearance: Present: no acute distress, well-nourished, obese - EENT Eyes: Present: PERRL, EOM intact ENT: hearing intact, clear oral mucosa, dentition normal - Neck Neck: Present: supple, normal ROM - Respiratory Respiratory effort: normal Respiratory: bilateral: diminished - Cardiovascular Rhythm: regular Heart Sounds: Present: S1 & S2 - Extremities Extremities: no ischemia, pulses intact, pulses symmetrical, No edema, normal temperature, normal color, abnormal (4/5 strength of left upper extremity, 3/5 strength of left lower extremity) Peripheral Pulses: within normal limits - Abdominal General gastrointestinal: Present: soft, non-tender, non-distended, normal bowel sounds Female genitourinary: Present: deferred - Rectal Rectal Exam: deferred - Integumentary Integumentary: Present: clear, warm, dry - Musculoskeletal Musculoskeletal: left sided weakness - Psychiatric Psychiatric: appropriate mood/affect, cooperative, depressed, other (Noticeable short-term memory loss) - Neurologic Neurologic: CNII-XII intact, moves all extremities - Allied Health Allied health notes reviewed: nursing Plan Activity: advance as tolerated Diet: low salt Additional Instructions: Patient is a 66-year-old female past medical history of morbid obesity, hypertension, tobacco dependence, [id number] type 2 diabetes mellitus, and recent history of CVA (approximately 2.5 weeks prior that was outside of the tPA window) who presented to the emergency department with acute left-sided weakness started approximately 1 hour prior to presentation without visual or verbal disturbances appreciated. In the ED, the patient was found to be hemodynamically stable. Teleneurology was consulted in the ED for further management. The patient was admitted for further CVA work-up for new acute ischemic stroke versus recrudescence. Patient underwent CT head noncontrast, CTA head and neck, and MRI brain that were found to be unremarkable. The MRI was remarkable for "evolving right thalamic infarct" that is consistent with the patient having recrudescence as opposed to a new acute ischemic CVA. Patient was evaluated by physical therapy, Occupational Therapy, and speech therapy who recommended [facility]. The patient initially declined rehabilitation and was asking for placement at a assisted living facility; how ever, the patient does not meet the financial requirements. She expressed understanding. The patient then agreed to [facility], and then she requested to be discharged home. Repeated detailed conversations have been had with the patient about coming to a distinct decision about her disposition. The decision has been made to discharge the patient home with her son and [id number]. Patient expressed understanding. Care Plan Goals: Patient is medically clear for discharge. Assessment: Patient is a 66-year-old female past medical history of morbid obesity, hypertension, tobacco dependence, rrs-pdrkurb-drymejtas type 2 diabetes mellitus, and recent history of CVA (approximately 2.5 weeks prior that was outside of the tPA window) who presented to the emergency department with acute left-sided weakness started approximately 1 hour prior to presentation without visual or verbal disturbances appreciated. In the ED, the patient was found to be hemodynamically stable. Teleneurology was consulted in the ED for further management. The patient was admitted for further CVA work-up for new acute ischemic stroke versus recrudescence. Patient underwent CT head noncontrast, CTA head and neck, and MRI brain that were found to be unremarkable. The MRI was remarkable for "evolving right thalamic infarct" that is consistent with the patient having recrudescence as opposed to a new acute ischemic CVA. Patient was evaluated by physical therapy, Occupational Therapy, and speech therapy who recommended [facility]. The patient initially declined rehabilitation and was asking for placement at a assisted living facility; however, the patient does not meet the financial requirements. She expressed understanding. The patient then agreed to [facility], and then she requested to be discharged home. Repeated detailed conversations have been had with the patient about coming to a distinct decision about her disposition. The decision has been made to discharge the patient home with her son and [id number]. Patient expressed understanding. Follow up with: DEYANIRA DU MD [Primary Care Provider] - 7 Days Prescriptions: AtorvaSTATin [Lipitor] 40 mg PO QHS #30 tablet Aspirin [Aspirin BABY CHEW TAB] 81 mg PO QDAY #30 tab.chew Losartan [Cozaar] 50 mg PO QDAY #30 tablet metFORMIN [Glucophage] 500 mg PO BIDDIAB #60 tablet Famotidine [Pepcid] 20 mg PO BID #60 tablet Clopidogrel [Plavix] 75 mg PO QDAY #20 tablet NIFEdipine XL [Procardia Xl] 60 mg PO QDAY #30 tablet
[2021-08-30] MEDS: ACETAMINOPHEN 325 MG TAB PO PRN ×2 (18:45→22:57)
--- NOTE | 2021-08-31 08:07 | Progress Note ---
Assessment and Plan Assessment and plan: #Presumed acute ischemic CVA versus recrudescencestable Unremarkable CT head noncontrast, CTA head and neck. 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 Unremarkable MRA brain." Pending MRI brain with and without contrast Continue aspirin 325 mg daily, Plavix 75 mg daily x21 days, atorvastatin 40 mg daily. Neurology consulted; appreciate recs Physical therapy, Occupational Therapy, and speech therapy consulted. Pending recommendations. Lipid panel: Triglycerides 115, total cholesterol 114, LDL 48, HDL 46. Hemoglobin A1c 6.0. #Asymptomatic COVID-19 infection - patient afebrile, labs WNL and no hypoxia - will continue to monitor for symptoms - no need to treat at this time #Hypertension - home medications: Nifedipine 60 mg daily, losartan 50 mg daily - current medications: Currently holding antihypertensives to allow permissive hypertension in the setting of presumed acute ischemic CVA - SBP goal <160 and DBP goal <90 while inpatient - continue to monitor #Non-insulin dependent type II diabetes mellitus - hemoglobin A1c: 6.0 - home regimen: Metformin 500 mg twice daily - current regimen: Metformin 500 mg twice daily - blood glucose goal 140-180 while inpatient - continue to monitor #Morbid obesity #Weight loss counseling #Exercise counseling - BMI 50.2 - Counseled patient on the importance of weight loss, incorporating exercise, and dietary changes (lean meats, fresh fruits and vegetables, and water intake). Patient expresses understanding. - Time: +15 min #Advanced care planning -Disease education conducted, care plan discussed, diagnoses discussed, prognosis discussed, and patient acknowledges understanding with care plan -Time: +30 min #Discharge planning - Patient is pending authorization acute rehab here at [facility]. Currently COVID PCR positive, will repeat tomorrow - Case management has been made aware. History Interval history: No acute events overnight. Patient counseled about asymptomatic COVID-19 infection. Denies headache, palpitations, chest pain, shortness of breath, or weakness. Currently having leg pains that she has periodically that are typically improved with Tylenol. She has no complaints at this time. Hospitalist Physical - Physical exam Narrative exam: GENERAL: Well-developed well-nourished. In no acute distress. HEENT: Normocephalic. Atraumatic. NECK: Supple. CHEST/LUNGS: CTAB on room air HEART/CARDIOVASCULAR: RRR. No murmur, rubs or gallops appreciated. ABDOMEN: +BS. NT/ND. SKIN: No rashes noted. NEURO: No focal motor deficit. Follows all commands. MUSCULOSKELETAL: No joint effusion EXTREMITIES: No cyanosis, clubbing or edema. PSYCH: Cooperative. - Constitutional Vitals: Temp Pulse Resp BP Pulse Ox 98.2 F 106 H 20 128/77 94 08/30/21 20:38 08/30/21 20:38 08/30/21 22:00 08/30/21 20:38 08/30/21 22:00 General appearance: Present: no acute distress, well-nourished, obese HEART Score - HEART Score Troponin: Troponin T < 0.010 ng/mL (0.00-0.029) 08/27/21 20:08 Results - Labs CBC & Chem 7: 08/28/21 04:59 08/28/21 04:59 Labs: Laboratory Last Values WBC 8.2 K/mm3 (4.5-11.0) 08/28/21 04:59 RBC 4.54 M/mm3 (3.65-5.03) 08/28/21 04:59 Hgb 10.7 gm/dl (10.1-14.3) 08/28/21 04:59 Hct 34.2 % (30.3-42.9) 08/28/21 04:59 MCV 75 fl (79-97) L 08/28/21 04:59 MCH 24 pg (28-32) L 08/28/21 04:59 MCHC 31 % (30-34) 08/28/21 04:59 RDW 17.8 % (13.2-15.2) H 08/28/21 04:59 Plt Count 230 K/mm3 (140-440) 08/28/21 04:59 Lymph % (Auto) 28.4 % (13.4-35.0) 08/28/21 04:59 [place] % (Auto) 7.0 % (0.0-7.3) 08/28/21 04:59 Eos % (Auto) 2.3 % (0.0-4.3) 08/28/21 04:59 Baso % (Auto) 0.9 % (0.0-1.8) 08/28/21 04:59 Lymph # (Auto) 2.3 K/mm3 (1.2-5.4) 08/28/21 04:59 [place] # (Auto) 0.6 K/mm3 (0.0-0.8) 08/28/21 04:59 Eos # (Auto) 0.2 K/mm3 (0.0-0.4) 08/28/21 04:59 Baso # (Auto) 0.1 K/mm3 (0.0-0.1) 08/28/21 04:59 Seg Neutrophils % 61.4 % (40.0-70.0) 08/28/21 04:59 Seg Neutrophils # 5.1 K/mm3 (1.8-7.7) 08/28/21 04:59 PT 12.2 Sec. (12.2-14.9) 08/27/21 20:08 INR 0.82 (0.87-1.13) L 08/27/21 20:08 APTT 27.7 Sec. (24.2-36.6) 08/27/21 20:08 Sodium 137 mmol/L (137-145) 08/28/21 04:59 Potassium 4.0 mmol/L (3.6-5.0) 08/28/21 04:59 Chloride 104.1 mmol/L (98-107) 08/28/21 04:59 Carbon Dioxide 22 mmol/L (22-30) 08/28/21 04:59 Anion Gap 15 mmol/L 08/28/21 04:59 BUN 16 mg/dL (7-17) 08/28/21 04:59 Creatinine 0.8 mg/dL (0.6-1.2) 08/28/21 04:59 Estimated GFR > 60 ml/min 08/28/21 04:59 BUN/Creatinine Ratio 20 % 08/28/21 04:59 Glucose 93 mg/dL (65-100) 08/28/21 04:59 POC Glucose 90 mg/dL (70-105) 08/29/21 21:57 Hemoglobin A1c 6.0 % (4-6) 08/28/21 04:59 Calcium 9.0 mg/dL (8.4-10.2) 08/28/21 04:59 Total Bilirubin 0.30 mg/dL (0.1-1.2) 08/27/21 20:08 AST 15 units/L (5-40) 08/27/21 20:08 ALT 11 units/L (7-56) 08/27/21 20:08 Alkaline Phosphatase 85 units/L (35-129) 08/27/21 20:08 Troponin T < 0.010 ng/mL (0.00-0.029) 08/27/21 20:08 NT-Pro-B Natriuret Pep 179.9 pg/mL (0-900) 08/27/21 20:08 Total Protein 6.7 g/dL (6.3-8.2) 08/27/21 20:08 Albumin 3.8 g/dL (3.9-5) L 08/27/21 20:08 Albumin/Globulin Ratio 1.3 % 08/27/21 20:08 Triglycerides 115 mg/dL (2-149) 08/28/21 04:59 Cholesterol 114 mg/dL (50-199) 08/28/21 04:59 LDL Cholesterol Direct 48 mg/dL (50-130) L 08/28/21 04:59 HDL Cholesterol 46 mg/dL (40-59) 08/28/21 04:59 Cholesterol/HDL Ratio 2.47 % 08/28/21 04:59 TSH 2.160 mlU/mL (0.270-4.200) 08/27/21 20:08 Urine Color Straw (Yellow) 08/28/21 Unknown Urine Turbidity Clear (Clear) 08/28/21 Unknown Urine pH 6.5 (5.0-7.0) 08/28/21 Unknown Ur Specific [place] 1.010 (1.003-1.030) 08/28/21 Unknown Urine Protein 30 mg/dl mg/dL (Negative) 08/28/21 Unknown Urine Glucose (UA) Negative mg/dL (Negative) 08/28/21 Unknown Urine Ketones Negative mg/dL (Negative) 08/28/21 Unknown Urine Blood Negative (Negative) 08/28/21 Unknown Urine Nitrite Negative (Negative) 08/28/21 Unknown Urine Bilirubin Negative (Negative) 08/28/21 Unknown Urine Urobilinogen < 0.2 mg/dL (<2.0) 08/28/21 Unknown Ur Leukocyte Esterase Negative (Negative) 08/28/21 Unknown Urine WBC (Auto) < 1.0 /HPF (0.0-6.0) 08/28/21 Unknown Urine RBC (Auto) < 1.0 /HPF (0.0-6.0) 08/28/21 Unknown U Epithel Cells (Auto) 1.0 /HPF (0-13.0) 08/28/21 Unknown Coronavirus (PCR) Positive (Negative) A 08/30/21 Unknown Moya/IV: Voiding Method External Female Catheter Active Medications - Current Medications Current Medications: Generic Name Dose Route Start Last Admin Trade Name Freq PRN Reason Stop Dose Admin Acetaminophen 650 mg 08/27/21 22:29 08/30/21 22:57 Acetaminophen 325 Mg Tab PO 650 mg Q4H PRN Administration Pain MILD(1-3)/Fever >100.5/WARNER Albuterol 2.5 mg 08/27/21 22:29 Albuterol 2.5 Mg/3 Ml Nebu IH Q3HRT PRN Shortness Of Breath Aspirin 81 mg 08/30/21 10:00 08/30/21 09:45 Aspirin 81 Mg Tab Chew PO 81 mg QDAY ABRAM Administration Atorvastatin Calcium 40 mg 08/28/21 22:00 08/30/21 22:55 Atorvastatin 40 Mg Tab PO 40 mg QHS ABRAM Administration Clopidogrel Bisulfate 75 mg 08/28/21 10:00 08/30/21 09:45 Clopidogrel 75 Mg Tab PO 75 mg QDAY ABRAM Administration Famotidine 20 mg 08/28/21 10:00 08/30/21 22:59 Famotidine 20 Mg/2 Ml Inj IV Not Given BID ABRAM Heparin Sodium (Porcine) 5,000 unit 08/28/21 10:00 08/30/21 22:55 Heparin 5,000 Unit/1 Ml Vial SUB-Q 5,000 unit Q12HR ABRAM Administration Labetalol HCl 10 mg 08/27/21 22:29 Labetalol 20 Mg/4 Ml Inj IV Q5MIN PRN to maintain SBP < 180 Losartan Potassium 25 mg 08/30/21 10:00 08/30/21 09:45 Losartan 25 Mg Tab PO 25 mg QDAY ABRAM Administration Metformin HCl 500 mg 08/30/21 08:00 08/30/21 18:44 Metformin 500 Mg Tab PO 500 mg BIDDIAB ABRAM Administration Morphine Sulfate 2 mg 08/27/21 22:29 08/28/21 11:53 Morphine 2 Mg/1 Ml Inj IV 2 mg Q4H PRN Administration Pain, Moderate (4-6) Morphine Sulfate 4 mg 08/27/21 22:29 Morphine 4 Mg/1 Ml Inj IV Q4H PRN Pain , Severe (7-10) Nifedipine 60 mg 08/30/21 10:00 08/30/21 22:55 Nifedipine Xl 60 Mg Tab PO 60 mg Q12HR ABRAM Administration Ondansetron HCl 4 mg 08/27/21 22:29 Ondansetron 4 Mg/2 Ml Inj IV Q8H PRN Nausea And Vomiting Sodium Chloride 10 ml 08/28/21 10:00 08/30/21 22:59 Sodium Chloride 0.9% 10 Ml Flush Syringe IV Not Given BID ABRAM Sodium Chloride 10 ml 08/27/21 22:29 Sodium Chloride 0.9% 10 Ml Flush Syringe IV PRN PRN LINE FLUSH
[2021-08-31] MEDS: metFORMIN 500 MG TAB PO SCH ×2 (08:13→16:31)
[2021-08-31] MEDS: CLOPIDOGREL 75 MG TAB PO SCH (10:05)
[2021-08-31] MEDS: ASPIRIN 81 MG TAB CHEW PO SCH (10:05)
[2021-08-31] MEDS: ACETAMINOPHEN 325 MG TAB PO PRN ×2 (10:05→19:39)
[2021-08-31] MEDS: NIFEdipine XL 60 MG TAB PO SCH ×2 (10:05→21:40)
[2021-08-31] MEDS: FAMOTIDINE 20 MG TAB PO SCH ×2 (10:05→21:40)
[2021-08-31] MEDS: HEPARIN 5,000 UNIT/1 ML VIAL SUB-Q SCH ×2 (10:07→21:41)
[2021-08-31] MEDS: LOSARTAN 25 MG TAB PO SCH (10:07)
--- NOTE | 2021-09-01 07:37 | Progress Note ---
Assessment and Plan Assessment and plan: #Presumed acute ischemic CVA versus recrudescencestable Unremarkable CT head noncontrast, CTA head and neck. 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 Unremarkable MRA brain." Pending MRI brain with and without contrast Continue aspirin 325 mg daily, Plavix 75 mg daily x21 days, atorvastatin 40 mg daily. Neurology consulted; appreciate recs Physical therapy, Occupational Therapy, and speech therapy consulted. Pending recommendations. Lipid panel: Triglycerides 115, total cholesterol 114, LDL 48, HDL 46. Hemoglobin A1c 6.0. #Asymptomatic COVID-19 infection - patient afebrile, labs WNL and no hypoxia - will continue to monitor for symptoms - elevated d-dimer, CTA chest ordered - no need to treat at this time #Hypertension - home medications: Nifedipine 60 mg daily, losartan 50 mg daily - current medications: Currently holding antihypertensives to allow permissive hypertension in the setting of presumed acute ischemic CVA - SBP goal <160 and DBP goal <90 while inpatient - continue to monitor #Non-insulin dependent type II diabetes mellitus - hemoglobin A1c: 6.0 - home regimen: Metformin 500 mg twice daily - current regimen: Metformin 500 mg twice daily - blood glucose goal 140-180 while inpatient - continue to monitor #Morbid obesity #Weight loss counseling #Exercise counseling - BMI 50.2 - Counseled patient on the importance of weight loss, incorporating exercise, and dietary changes (lean meats, fresh fruits and vegetables, and water intake). Patient expresses understanding. - Time: +15 min #Advanced care planning -Disease education conducted, care plan discussed, diagnoses discussed, p rognosis discussed, and patient acknowledges understanding with care plan -Time: +30 min #Discharge planning - Patient is pending authorization acute rehab here at [facility]. Currently COVID PCR positive, will repeat tomorrow - Case management has been made aware. History Interval history: No acute events overnight. She denies headache, chest pain, shortness of breath and lower extremity swelling. She has no complaints at this time. Hospitalist Physical - Physical exam Narrative exam: GENERAL: Well-developed well-nourished. In no acute distress. HEENT: Normocephalic. Atraumatic. CHEST/LUNGS: CTAB on room air HEART/CARDIOVASCULAR: Mild tachycardia. No murmur, rubs or gallops appreciated. ABDOMEN: +BS. NT/ND. SKIN: No rashes noted. NEURO: No focal motor deficit. Follows all commands. MUSCULOSKELETAL: No joint effusion EXTREMITIES: No cyanosis, clubbing or edema. PSYCH: Cooperative. - Constitutional Vitals: Temp Pulse Resp BP Pulse Ox 97.6 F 110 H 20 102/85 97 08/31/21 10:56 08/31/21 10:56 08/31/21 10:56 08/31/21 10:56 09/01/21 00:36 General appearance: Present: no acute distress, well-nourished, obese HEART Score - HEART Score Troponin: Troponin T < 0.010 ng/mL (0.00-0.029) 08/27/21 20:08 Results - Labs CBC & Chem 7: 08/28/21 04:59 09/01/21 06:52 Labs: Laboratory Last Values WBC 8.2 K/mm3 (4.5-11.0) 08/28/21 04:59 RBC 4.54 M/mm3 (3.65-5.03) 08/28/21 04:59 Hgb 10.7 gm/dl (10.1-14.3) 08/28/21 04:59 Hct 34.2 % (30.3-42.9) 08/28/21 04:59 MCV 75 fl (79-97) L 08/28/21 04:59 MCH 24 pg (28-32) L 08/28/21 04:59 MCHC 31 % (30-34) 08/28/21 04:59 RDW 17.8 % (13.2-15.2) H 08/28/21 04:59 Plt Count 230 K/mm3 (140-440) 08/28/21 04:59 Lymph % (Auto) 28.4 % (13.4-35.0) 08/28/21 04:59 [place] % (Auto) 7.0 % (0.0-7.3) 08/28/21 04:59 Eos % (Auto) 2.3 % (0.0-4.3) 08/28/21 04:59 Baso % (Auto) 0.9 % (0.0-1.8) 08/28/21 04:59 Lymph # (Auto) 2.3 K/mm3 (1.2-5.4) 08/28/21 04:59 [place] # (Auto) 0.6 K/mm3 (0.0-0.8) 08/28/21 04:59 Eos # (Auto) 0.2 K/mm3 (0.0-0.4) 08/28/21 04:59 Baso # (Auto) 0.1 K/mm3 (0.0-0.1) 08/28/21 04:59 Seg Neutrophils % 61.4 % (40.0-70.0) 08/28/21 04:59 Seg Neutrophils # 5.1 K/mm3 (1.8-7.7) 08/28/21 04:59 PT 12.2 Sec. (12.2-14.9) 08/27/21 20:08 INR 0.82 (0.87-1.13) L 08/27/21 20:08 APTT 27.7 Sec. (24.2-36.6) 08/27/21 20:08 Sodium 137 mmol/L (137-145) 08/28/21 04:59 Potassium 4.0 mmol/L (3.6-5.0) 08/28/21 04:59 Chloride 104.1 mmol/L (98-107) 08/28/21 04:59 Carbon Dioxide 22 mmol/L (22-30) 08/28/21 04:59 Anion Gap 15 mmol/L 08/28/21 04:59 BUN 16 mg/dL (7-17) 08/28/21 04:59 Creatinine 0.8 mg/dL (0.6-1.2) 08/28/21 04:59 Estimated GFR > 60 ml/min 08/28/21 04:59 BUN/Creatinine Ratio 20 % 08/28/21 04:59 Glucose 93 mg/dL (65-100) 08/28/21 04:59 POC Glucose 115 mg/dL (70-105) H 08/31/21 16:23 Hemoglobin A1c 6.0 % (4-6) 08/28/21 04:59 Calcium 9.0 mg/dL (8.4-10.2) 08/28/21 04:59 Total Bilirubin 0.30 mg/dL (0.1-1.2) 08/27/21 20:08 AST 15 units/L (5-40) 08/27/21 20:08 ALT 11 units/L (7-56) 08/27/21 20:08 Alkaline Phosphatase 85 units/L (35-129) 08/27/21 20:08 Troponin T < 0.010 ng/mL (0.00-0.029) 08/27/21 20:08 NT-Pro-B Natriuret Pep 179.9 pg/mL (0-900) 08/27/21 20:08 Total Protein 6.7 g/dL (6.3-8.2) 08/27/21 20:08 Albumin 3.8 g/dL (3.9-5) L 08/27/21 20:08 Albumin/Globulin Ratio 1.3 % 08/27/21 20:08 Triglycerides 115 mg/dL (2-149) 08/28/21 04:59 Cholesterol 114 mg/dL (50-199) 08/28/21 04:59 LDL Cholesterol Direct 48 mg/dL (50-130) L 08/28/21 04:59 HDL Cholesterol 46 mg/dL (40-59) 08/28/21 04:59 Cholesterol/HDL Ratio 2.47 % 08/28/21 04:59 TSH 2.160 mlU/mL (0.270-4.200) 08/27/21 20:08 Urine Color Straw (Yellow) 08/28/21 Unknown Urine Turbidity Clear (Clear) 08/28/21 Unknown Urine pH 6.5 (5.0-7.0) 08/28/21 Unknown Ur Specific [place] 1.010 (1.003-1.030) 08/28/21 Unknown Urine Protein 30 mg/dl mg/dL (Negative) 08/28/21 Unknown Urine Glucose (UA) Negative mg/dL (Negative) 08/28/21 Unknown Urine Ketones Negative mg/dL (Negative) 08/28/21 Unknown Urine Blood Negative (Negative) 08/28/21 Unknown Urine Nitrite Negative (Negative) 08/28/21 Unknown Urine Bilirubin Negative (Negative) 08/28/21 Unknown Urine Urobilinogen < 0.2 mg/dL (<2.0) 08/28/21 Unknown Ur Leukocyte Esterase Negative (Negative) 08/28/21 Unknown Urine WBC (Auto) < 1.0 /HPF (0.0-6.0) 08/28/21 Unknown Urine RBC (Auto) < 1.0 /HPF (0.0-6.0) 08/28/21 Unknown U Epithel Cells (Auto) 1.0 /HPF (0-13.0) 08/28/21 Unknown Coronavirus (PCR) Positive (Negative) A 08/30/21 Unknown Moya/IV: Voiding Method External Female Catheter Active Medications - Current Medications Current Medications: Generic Name Dose Route Start Last Admin Trade Name Freq PRN Reason Stop Dose Admin Acetaminophen 650 mg 08/27/21 22:29 08/31/21 19:39 Acetaminophen 325 Mg Tab PO 650 mg Q4H PRN Administration Pain MILD(1-3)/Fever >100.5/WARNER Albuterol 2.5 mg 08/27/21 22:29 Albuterol 2.5 Mg/3 Ml Nebu IH Q3HRT PRN Shortness Of Breath Aspirin 81 mg 08/30/21 10:00 08/31/21 10:05 Aspirin 81 Mg Tab Chew PO 81 mg QDAY ABRAM Administration Atorvastatin Calcium 40 mg 08/28/21 22:00 08/31/21 21:41 Atorvastatin 40 Mg Tab PO 40 mg QHS ABRAM Administration Clopidogrel Bisulfate 75 mg 08/28/21 10:00 08/31/21 10:05 Clopidogrel 75 Mg Tab PO 75 mg QDAY ABRAM Administration Famotidine 20 mg 08/31/21 10:00 08/31/21 21:40 Famotidine 20 Mg Tab PO 20 mg BID ABRAM Administration Heparin Sodium (Porcine) 5,000 unit 08/28/21 10:00 08/31/21 21:41 Heparin 5,000 Unit/1 Ml Vial SUB-Q 5,000 unit Q12HR ABRAM Administration Labetalol HCl 10 mg 08/27/21 22:29 Labetalol 20 Mg/4 Ml Inj IV Q5MIN PRN to maintain SBP < 180 Losartan Potassium 25 mg 08/30/21 10:00 08/31/21 10:07 Losartan 25 Mg Tab PO 25 mg QDAY ABRAM Administration Metformin HCl 500 mg 08/30/21 08:00 08/31/21 16:31 Metformin 500 Mg Tab PO 500 mg BIDDIAB ABRAM Administration Morphine Sulfate 2 mg 08/27/21 22:29 08/28/21 11:53 Morphine 2 Mg/1 Ml Inj IV 2 mg Q4H PRN Administration Pain, Moderate (4-6) Morphine Sulfate 4 mg 08/27/21 22:29 Morphine 4 Mg/1 Ml Inj IV Q4H PRN Pain , Severe (7-10) Nifedipine 60 mg 08/30/21 10:00 08/31/21 21:40 Nifedipine Xl 60 Mg Tab PO 60 mg Q12HR ABRAM Administration Ondansetron HCl 4 mg 08/27/21 22:29 Ondansetron 4 Mg/2 Ml Inj IV Q8H PRN Nausea And Vomiting Sodium Chloride 10 ml 08/28/21 10:00 08/31/21 23:30 Sodium Chloride 0.9% 10 Ml Flush Syringe IV Not Given BID ABRAM Sodium Chloride 10 ml 08/27/21 22:29 Sodium Chloride 0.9% 10 Ml Flush Syringe IV PRN PRN LINE FLUSH
[2021-09-01 07:39] LABS: BUN/Creatinine Ratio 16; Blood Urea Nitrogen 13 mg/dL (7-17); Calcium 9.5 mg/dL (8.4-10.2); Hemolysis Index 0
[2021-09-01] MEDS: ASPIRIN 81 MG TAB CHEW PO SCH (09:04)
[2021-09-01] MEDS: CLOPIDOGREL 75 MG TAB PO SCH (09:04)
[2021-09-01] MEDS: FAMOTIDINE 20 MG TAB PO SCH ×2 (09:04→21:24)
[2021-09-01] MEDS: metFORMIN 500 MG TAB PO SCH (09:04)
[2021-09-01] MEDS: HEPARIN 5,000 UNIT/1 ML VIAL SUB-Q SCH ×2 (09:05→21:24)
[2021-09-01] MEDS: NIFEdipine XL 60 MG TAB PO SCH ×2 (09:06→21:24)
[2021-09-01] MEDS: LOSARTAN 25 MG TAB PO SCH (09:07)
--- NOTE | 2021-09-01 13:17 | Cat Scan Report ---
CTA chest with contrast INDICATION : elevated d-dimer. Covid positive status TECHNIQUE: Axial imaging performed through the chest, with contrast bolus timing set to maximize opa cification of the pulmonary arteries. 3-plane MIP reformatted images were obtained. All CT scans at this location are performed using CT dose reduction for ALARA by means of automated exposure control. 80 mL of intravenous contrast administered. COMPARISON: None FINDINGS: Bolus/PTE: Contrast bolus timing is adequate. No filling defect is present to suggest PTE. Mediastinum: Normal heart size. No significant coronary artery calcification. No pathologic mediast inal adenopathy. Lungs: Lungs are clear. Upper abdomen: Limited imaging of the upper abdomen shows nothing acute. Moderate size hiatal herni a. Bones: Degenerative changes in the spine with nothing acute. IMPRESSION: Negative for PTE. Clear lungs. Signer Name: Lawrence Costa MD Signed: 09/01/2021 1:12 PM Workstation Name: [id number]
[2021-09-01] MEDS: ACETAMINOPHEN 325 MG TAB PO PRN ×2 (13:31→21:23)
--- NOTE | 2021-09-02 11:14 | Progress Note ---
Assessment and Plan Assessment and plan: #Presumed acute ischemic CVA versus recrudescencestable Unremarkable CT head noncontrast, CTA head and neck. 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 Unremarkable MRA brain." Pending MRI brain with and without contrast Continue aspirin 325 mg daily, Plavix 75 mg daily x21 days, atorvastatin 40 mg daily. Neurology consulted; appreciate recs Physical therapy, Occupational Therapy, and speech therapy consulted. Pending recommendations. Lipid panel: Triglycerides 115, total cholesterol 114, LDL 48, HDL 46. Hemoglobin A1c 6.0. #Asymptomatic COVID-19 infection - patient afebrile, labs WNL and no hypoxia - will continue to monitor for symptoms - elevated d-dimer, CTA chest negative for PE - no need to treat at this time #Hypertension - home medications: Nifedipine 60 mg daily, losartan 50 mg daily - current medications: Currently holding antihypertensives to allow permissive hypertension in the setting of presumed acute ischemic CVA - SBP goal <160 and DBP goal <90 while inpatient - continue to monitor #Non-insulin dependent type II diabetes mellitus - hemoglobin A1c: 6.0 - home regimen: Metformin 500 mg twice daily - current regimen: Metformin 500 mg twice daily - blood glucose goal 140-180 while inpatient - continue to monitor #Morbid obesity #Weight loss counseling #Exercise counseling - BMI 50.2 - Counseled patient on the importance of weight loss, incorporating exercise, and dietary changes (lean meats, fresh fruits and vegetables, and water intake). Patient expresses understanding. - Time: +15 min #Advanced care planning -Disease education conducted, care plan discussed, diagnoses discussed, prognosis discussed, and patient acknowledges understanding with care plan -Time: +30 min #Discharge planning - Patient is pending authorization acute rehab here at [facility]. Currently COVID PCR positive day 3 of CDC 5 day quarantine - Case management has been made aware. History Interval history: No acute events overnight. She has no complaints at this time. Awaiting placement. Hospitalist Physical - Physical exam Narrative exam: GENERAL: Well-developed well-nourished. In no acute distress. HEENT: Normocephalic. Atraumatic. CHEST/LUNGS: CTAB on room air HEART/CARDIOVASCULAR: Mild tachycardia. No murmur, rubs or gallops appreciated. ABDOMEN: +BS. NT/ND. SKIN: No rashes noted. NEURO: No focal motor deficit. Follows all commands. MUSCULOSKELETAL: No joint effusion EXTREMITIES: No cyanosis, clubbing or edema. PSYCH: Cooperative. - Constitutional Vitals: Temp Pulse Resp BP Pulse Ox 97.8 F 95 H 16 147/73 98 09/01/21 21:08 09/01/21 21:08 09/01/21 21:08 09/01/21 21:08 09/01/21 22:00 General appearance: Present: no acute distress, well-nourished, obese HEART Score - HEART Score Troponin: Troponin T < 0.010 ng/mL (0.00-0.029) 08/27/21 20:08 Results - Labs CBC & Chem 7: 08/28/21 04:59 09/01/21 06:52 Labs: Laboratory Last Values WBC 8.2 K/mm3 (4.5-11.0) 08/28/21 04:59 RBC 4.54 M/mm3 (3.65-5.03) 08/28/21 04:59 Hgb 10.7 gm/dl (10.1-14.3) 08/28/21 04:59 Hct 34.2 % (30.3-42.9) 08/28/21 04:59 MCV 75 fl (79-97) L 08/28/21 04:59 MCH 24 pg (28-32) L 08/28/21 04:59 MCHC 31 % (30-34) 08/28/21 04:59 RDW 17.8 % (13.2-15.2) H 08/28/21 04:59 Plt Count 230 K/mm3 (140-440) 08/28/21 04:59 Lymph % (Auto) 28.4 % (13.4-35.0) 08/28/21 04:59 [place] % (Auto) 7.0 % (0.0-7.3) 08/28/21 04:59 Eos % (Auto) 2.3 % (0.0-4.3) 08/28/21 04:59 Baso % (Auto) 0.9 % (0.0-1.8) 08/28/21 04:59 Lymph # (Auto) 2.3 K/mm3 (1.2-5.4) 08/28/21 04:59 [place] # (Auto) 0.6 K/mm3 (0.0-0.8) 08/28/21 04:59 Eos # (Auto) 0.2 K/mm3 (0.0-0.4) 08/28/21 04:59 Baso # (Auto) 0.1 K/mm3 (0.0-0.1) 08/28/21 04:59 Seg Neutrophils % 61.4 % (40.0-70.0) 08/28/21 04:59 Seg Neutrophils # 5.1 K/mm3 (1.8-7.7) 08/28/21 04:59 PT 12.2 Sec. (12.2-14.9) 08/27/21 20:08 INR 0.82 (0.87-1.13) L 08/27/21 20:08 APTT 27.7 Sec. (24.2-36.6) 08/27/21 20:08 D-Dimer 519.93 ng/mlDDU (0-234) H 09/01/21 06:52 Sodium 142 mmol/L (137-145) 09/01/21 06:52 Potassium 4.1 mmol/L (3.6-5.0) 09/01/21 06:52 Chloride 105.5 mmol/L (98-107) 09/01/21 06:52 Carbon Dioxide 25 mmol/L (22-30) 09/01/21 06:52 Anion Gap 16 mmol/L 09/01/21 06:52 BUN 13 mg/dL (7-17) 09/01/21 06:52 Creatinine 0.8 mg/dL (0.6-1.2) 09/01/21 06:52 Estimated GFR > 60 ml/min 09/01/21 06:52 BUN/Creatinine Ratio 16 % 09/01/21 06:52 Glucose 111 mg/dL (65-100) H 09/01/21 06:52 POC Glucose 130 mg/dL (70-105) H 09/02/21 07:21 Hemoglobin A1c 6.0 % (4-6) 08/28/21 04:59 Calcium 9.5 mg/dL (8.4-10.2) 09/01/21 06:52 Ferritin 15.2 ng/mL (10.0-200.0) 09/01/21 06:52 Total Bilirubin 0.30 mg/dL (0.1-1.2) 08/27/21 20:08 AST 15 units/L (5-40) 08/27/21 20:08 ALT 11 units/L (7-56) 08/27/21 20:08 Alkaline Phosphatase 85 units/L (35-129) 08/27/21 20:08 Lactate Dehydrogenase 140 units/L (91-180) 09/01/21 06:52 Troponin T < 0.010 ng/mL (0.00-0.029) 08/27/21 20:08 NT-Pro-B Natriuret Pep 179.9 pg/mL (0-900) 08/27/21 20:08 Total Protein 6.7 g/dL (6.3-8.2) 08/27/21 20:08 Albumin 3.8 g/dL (3.9-5) L 08/27/21 20:08 Albumin/Globulin Ratio 1.3 % 08/27/21 20:08 Triglycerides 115 mg/dL (2-149) 08/28/21 04:59 Cholesterol 114 mg/dL (50-199) 08/28/21 04:59 LDL Cholesterol Direct 48 mg/dL (50-130) L 08/28/21 04:59 HDL Cholesterol 46 mg/dL (40-59) 08/28/21 04:59 Cholesterol/HDL Ratio 2.47 % 08/28/21 04:59 TSH 2.160 mlU/mL (0.270-4.200) 08/27/21 20:08 Urine Color Straw (Yellow) 08/28/21 Unknown Urine Turbidity Clear (Clear) 08/28/21 Unknown Urine pH 6.5 (5.0-7.0) 08/28/21 Unknown Ur Specific [place] 1.010 (1.003-1.030) 08/28/21 Unknown Urine Protein 30 mg/dl mg/dL (Negative) 08/28/21 Unknown Urine Glucose (UA) Negative mg/dL (Negative) 08/28/21 Unknown Urine Ketones Negative mg/dL (Negative) 08/28/21 Unknown Urine Blood Negative (Negative) 08/28/21 Unknown Urine Nitrite Negative (Negative) 08/28/21 Unknown Urine Bilirubin Negative (Negative) 08/28/21 Unknown Urine Urobilinogen < 0.2 mg/dL (<2.0) 08/28/21 Unknown Ur Leukocyte Esterase Negative (Negative) 08/28/21 Unknown Urine WBC (Auto) < 1.0 /HPF (0.0-6.0) 08/28/21 Unknown Urine RBC (Auto) < 1.0 /HPF (0.0-6.0) 08/28/21 Unknown U Epithel Cells (Auto) 1.0 /HPF (0-13.0) 08/28/21 Unknown Coronavirus (PCR) Positive (Negative) A 08/30/21 Unknown Moya/IV: Voiding Method External Female Catheter Active Medications - Current Medications Current Medications: Generic Name Dose Route Start Last Admin Trade Name Freq PRN Reason Stop Dose Admin Acetaminophen 650 mg 08/27/21 22:29 09/01/21 21:23 Acetaminophen 325 Mg Tab PO 650 mg Q4H PRN Administration Pain MILD(1-3)/Fever >100.5/WARNER Albuterol 2.5 mg 08/27/21 22:29 Albuterol 2.5 Mg/3 Ml Nebu IH Q3HRT PRN Shortness Of Breath Aspirin 81 mg 08/30/21 10:00 09/01/21 09:04 Aspirin 81 Mg Tab Chew PO 81 mg QDAY ABRAM Administration Atorvastatin Calcium 40 mg 08/28/21 22:00 09/01/21 21:24 Atorvastatin 40 Mg Tab PO 40 mg QHS ABRAM Administration Clopidogrel Bisulfate 75 mg 08/28/21 10:00 09/01/21 09:04 Clopidogrel 75 Mg Tab PO 75 mg QDAY ARBAM Administration Famotidine 20 mg 08/31/21 10:00 09/01/21 21:24 Famotidine 20 Mg Tab PO 20 mg BID ABRAM Administration Heparin Sodium (Porcine) 5,000 unit 08/28/21 10:00 09/01/21 21:24 Heparin 5,000 Unit/1 Ml Vial SUB-Q 5,000 unit Q12HR ABRAM Administration Labetalol HCl 10 mg 08/27/21 22:29 Labetalol 20 Mg/4 Ml Inj IV Q5MIN PRN to maintain SBP < 180 Losartan Potassium 25 mg 08/30/21 10:00 09/01/21 09:07 Losartan 25 Mg Tab PO 25 mg QDAY ABRAM Administration Morphine Sulfate 2 mg 08/27/21 22:29 08/28/21 11:53 Morphine 2 Mg/1 Ml Inj IV 2 mg Q4H PRN Administration Pain, Moderate (4-6) Morphine Sulfate 4 mg 08/27/21 22:29 Morphine 4 Mg/1 Ml Inj IV Q4H PRN Pain , Severe (7-10) Nifedipine 60 mg 08/30/21 10:00 09/01/21 21:24 Nifedipine Xl 60 Mg Tab PO 60 mg Q12HR ABRAM Administration Ondansetron HCl 4 mg 08/27/21 22:29 Ondansetron 4 Mg/2 Ml Inj IV Q8H PRN Nausea And Vomiting Sodium Chloride 10 ml 08/28/21 10:00 09/01/21 22:12 Sodium Chloride 0.9% 10 Ml Flush Syringe IV 10 ml BID ABRAM Administration Sodium Chloride 10 ml 08/27/21 22:29 Sodium Chloride 0.9% 10 Ml Flush Syringe IV PRN PRN LINE FLUSH
[2021-09-02] MEDS: ACETAMINOPHEN 325 MG TAB PO PRN ×2 (12:17→20:16)
[2021-09-02] MEDS: LOSARTAN 25 MG TAB PO SCH (12:17)
[2021-09-02] MEDS: ASPIRIN 81 MG TAB CHEW PO SCH (12:17)
[2021-09-02] MEDS: CLOPIDOGREL 75 MG TAB PO SCH (12:18)
[2021-09-02] MEDS: HEPARIN 5,000 UNIT/1 ML VIAL SUB-Q SCH ×2 (12:18→22:59)
[2021-09-02] MEDS: FAMOTIDINE 20 MG TAB PO SCH ×2 (12:19→22:59)
[2021-09-02] MEDS: NIFEdipine XL 60 MG TAB PO SCH ×2 (12:19→22:59)
[2021-09-02] MEDS: MORPHINE 2 MG/1 ML INJ IV PRN (13:43)
--- NOTE | 2021-09-03 11:04 | Discharge Summary ---
Providers - Providers Date of Admission: 08/28/21 10:37 Date of discharge: 09/03/21 Attending physician: ANASTASIYA OROZCO MD 08/27/21 22:29 Occupational Therapy Evaluate and Treat [CONS] Routine Comment: Reason For Exam: Neuro deficits Physical Therapy Evaluation and Treat [CONS] Routine Comment: Reason For Exam: Neuro deficits 08/28/21 07:19 Speech Therapy Evaluation and Treat [CONS] Routine Reason For Exam: Stroke evaluation 08/28/21 07:21 Consult to Physician [CONS] Routine Comment: Consulting Provider: CJ VICENTE Physician Instructions: Reason For Exam: Stroke evaluation Primary care physician: DEYANIRA DU Hospitalization Reason for admission: CVA r/o Condition: Stable Hospital course: Patient is a 66-year-old female past medical history of morbid obesity, hypertension, tobacco dependence, [id number] type 2 diabetes mellitus, and recent history of CVA (approximately 2.5 weeks prior that was outside of the tPA window) who presented to the emergency department with acute left-sided weakness started approximately 1 hour prior to presentation without visual or verbal disturbances appreciated. In the ED, the patient was found to be hemodynamically stable. Teleneurology was consulted in the ED for further management. The patient was admitted for further CVA work-up for new acute ischemic stroke versus recrudescence. Patient underwent CT head noncontrast, CTA head and neck, and MRI brain that were found to be unremarkable. The MRI w as remarkable for "evolving right thalamic infarct" that is consistent with the patient having recrudescence as opposed to a new acute ischemic CVA. Patient was evaluated by physical therapy, Occupational Therapy, and speech therapy who recommended [facility]. The patient initially declined rehabilitation and was asking for placement at a assisted living facility; however, the patient does not meet the financial requirements. She expressed understanding. The patient then agreed to [facility], and then she requested to be discharged home. Repeated detailed conversations have been had with the patient about coming to a distinct decision about her disposition. The decision has been made to discharge the patient home with her son and [id number]. Patient expressed understanding. Disposition: HOME / SELF CARE / HOMELESS Final Discharge Diagnosis (Prints w/discharge instructions): Recrudescence of ischemic CVA. Acute ischemic CVA. Asymptomatic COVID-19 infection. Hypertension. [id number] type 2 diabetes. Morbid obesity Time spent for discharge: 35 minutes Core Measure Documentation - Palliative Care Palliative Care/ Comfort Measures: Not Applicable - Core Measures Any of the following diagnoses?: stroke - Stroke Discharge Requirements Statin for LDL = or >70 mg/dl on DC: Yes Anticoag for atrial fib/atrial flutter: Not Applicable Antithrombotic for ischemic stroke: Yes Exam - Physical Exam Narrative exam: GENERAL: Well-developed well-nourished. In no acute distress. HEENT: Normocephalic. Atraumatic. CHEST/LUNGS: CTAB on room air HEART/CARDIOVASCULAR: Mild tachycardia. No murmur, rubs or gallops appreciated. ABDOMEN: +BS. NT/ND. SKIN: No rashes noted. NEURO: No focal motor deficit. Follows all commands. MUSCULOSKELETAL: No joint effusion EXTREMITIES: No cyanosis, clubbing or edema. PSYCH: Cooperative. - Constitutional Vitals: Temp Pulse Resp BP Pulse Ox 98.4 F 84 18 120/57 97 09/03/21 05:55 09/03/21 05:55 09/03/21 05:55 09/03/21 05:55 09/03/21 05:55 Plan Care Plan Goals: Please make sure you follow-up with your primary care provider and discharge. Please take all medications as they are prescribed to you. Assessment: Patient is a 66-year-old female past medical history of morbid obesity, hypertension, tobacco dependence, [id number] type 2 diabetes mellitus, and recent history of CVA (approximately 2.5 weeks prior that was outside of the tPA window) who presented to the emergency department with acute left-sided weakness started approximately 1 hour prior to presentation without visual or verbal disturbances appreciated. In the ED, the patient was found to be hemodynamically stable. Teleneurology was consulted in the ED for further management. The patient was admitted for further CVA work-up for new acute ischemic stroke versus recrudescence. Patient underwent CT head noncontrast, CTA head and neck, and MRI brain that were found to be unremarkable. The MRI was remarkable for "evolving right thalamic infarct" that is consistent with the patient having recrudescence as opposed to a new acute ischemic CVA. Patient was evaluated by physical therapy, Occupational Therapy, and speech therapy who recommended [facility]. The patient initially declined rehabilitation and was asking for placement at a assisted living facility; however, the patient does not meet the financial requirements. She expressed understanding. The patient then agreed to [facility], and then she requested to be discharged home. Repeated detailed conversations have been had with the patient about coming to a distinct decision about her disposition. The decision has been made to discharge the patient home with her son and [id number]. Patient expressed understanding. Follow up with: DEYANIRA DU MD [Primary Care Provider] - 7 Days Prescriptions: AtorvaSTATin [Lipitor] 40 mg PO QHS #30 tablet Aspirin [Aspirin BABY CHEW TAB] 81 mg PO QDAY #30 tab.chew Losartan [Cozaar] 50 mg PO QDAY #30 tablet metFORMIN [Glucophage] 500 mg PO BIDDIAB #60 tablet Famotidine [Pepcid] 20 mg PO BID #60 tablet Clopidogrel [Plavix] 75 mg PO QDAY #20 tablet NIFEdipine XL [Procardia Xl] 60 mg PO QDAY #30 tablet
[2021-09-03] MEDS: FAMOTIDINE 20 MG TAB PO SCH (11:27)
[2021-09-03] MEDS: ASPIRIN 81 MG TAB CHEW PO SCH (11:27)
[2021-09-03] MEDS: HEPARIN 5,000 UNIT/1 ML VIAL SUB-Q SCH (11:28)
[2021-09-03] MEDS: CLOPIDOGREL 75 MG TAB PO SCH (11:29)
[2021-09-03] MEDS: NIFEdipine XL 60 MG TAB PO SCH (11:44)
[2021-09-03] MEDS: LOSARTAN 25 MG TAB PO SCH (11:44)
[2021-09-03 11:45] VITALS: BP 133/79
[2021-09-03] MEDS ORDERED: ALPRAZolam 0.5 MG TAB PO ONE (12:29)
== END 2021-09-03 12:41 | disposition home or self-care (01) | DRG 64 ==
LOC: ED 19:26 → 4A 22:46 → OBSVTOIN 08-28 10:37 → 3A 08-30 21:51
PROVIDERS: ADMIT Hospitalist; ATTEND Student in an Organized Health Care Education/Training Program
DX: I63.9 Cerebral infarction, unspecified (principal); U07.1 COVID-19; Z68.43 Body mass index [BMI] 50.0-59.9, adult; I10 Essential (primary) hypertension; E66.01 Morbid (severe) obesity due to excess calories; E11.9 Type 2 diabetes mellitus without complications; Z20.822 Contact with and (suspected) exposure to COVID-19
CPT/HCPCS: 36415; 70450; 70496; 70498; 70544; 70551; 71275; 80048; 80053; 80061; 81001; 82728; 82962; 83036; 83615; 83880; 84443; 84484; 85025; 85379; 85610; 85730; 93005; 94640; G0378; J3490; J1644; J2060; J2270; J7030; Q9967; U0003